=== PATIENT | male | born 1970 | race Caucasian/White ===

== ENCOUNTER 2017-12-20 07:37 | Inpatient (IN) | payer OTHER, SELFPAY ==
[2017-12-20] VITALS (22 sets, daily range): BP systolic 126–179; BP diastolic 75–126; PULSE 80–97; RESP 10–28; TEMP 36.3–37; O2SAT 92–100; BMI 36.8; BMI 37.7
--- NOTE | 2017-12-20 07:52 | EKG12_ITS ---
Test Reason : CP REPEAT Blood Pressure : / mmHG Vent. Rate : 087 BPM Atrial Rate : 087 BPM P-R Int : 158 ms QRS Dur : 086 ms QT Int : 418 ms P-R-T Axes : 048 018 102 degrees QTc Int : 502 ms Normal sinus rhythm T wave abnormality, consider anterolateral ischemia Prolonged QT Abnormal ECG Confirmed by HAILEE PANIAGUA, MART ([id number]), commissioning editor UMA TIRADO ([id number]) on 12/22/2017 3:22:57 PM Referred By: Ryan Rai Confirmed By:MART STEPHEN MD
--- NOTE | 2017-12-20 07:59 | ED.VISSUMM ---
- ER Visit Summary Date of Service: 12/20/17 Chief Complaint: [Chest pain] History of Present Illness: The patient is a 47 M [who presents the emergency department with chest pain. It has been going on for the last 24 hours. It is substernal in nature. He is very short of breath. He has been having intermittent chest pain for the last 1-2 months that usually goes away on its own but this has not. He describes it as an unbelievable heaviness with numbness in his hands bilaterally. He does have a history of high blood pressure and high cholesterol diagnosed at [facility] screening but has never seen a doctor. He does smoke. He denies any diaphoresis or nausea.] Physical Examination: [] Blood pressure 190/130 other vitals within acceptable limits except for a respiratory rate of 28 WN WD NAD PERRL EOMI MMM NECK supple and nontender, no masses RRR no murmur rub or gallop, no peripheral edema, symmetric radial pulses No respiratory distress and expiratory wheezing ABDOMEN is soft and nontender, normal bowel sounds, no distension, no rebound or guarding SKIN is warm and dry no rashes Alert and Oriented x3, CN II-XII in tact, no motor or sensory deficits, gait normal No lymphadenopathy Test Results: [] Emergency Department Course and Treatment: [Initial EKG concerning for less than half a millimeter of ST elevation in the inferior leads and biphasic T waves in the anterior leads. Given the patient's history I did speak immediately with the apprentice plumber. He states that the patient should be placed on a nitro drip and admitted to the hospital. I did discuss early catheterization and he felt like the patient did not need to be taken to the Broommaking Supervisor from the emergency department. Repeat EKG shows continued borderline ST elevation in the inferior leads and biphasic T waves anteriorly. It is not significantly changed from the first. Patient's troponin came back at 7. I spoke back with Dr. Wali trujillo. The patient's pain was a 3-1/2 at that point. He did advise to increase the nitro drip which was done. Dr. Rai will be in to evaluate the patient. He will be admitted to the ICU. Treatment Plan: [] Disposition: [Admit] Impression: [Acute TX] This note was generated with Glass dictation software. It may contain incorrect words, spelling, and punctuation that were not noted in review of the chart prior to signing ED Disposition - Plan for ED Patient: Chief Complaint: Chest Pain Referrals: NOT,DEFINED [NON-STAFF] -
--- NOTE | 2017-12-20 08:00 | RAD_ITS ---
STUDY: X-RAY CHEST REASON FOR EXAM: Male, 47 years old. Chest pain and hypertension. TECHNIQUE: Two AP portable views of the chest. COMPARISON: Prior comparison studies are not available for review at this time. FINDINGS: The lungs are clear and expanded. There is no demonstrated pleural abnormality. There is borderline cardiomegaly. Normal mediastinum and renuka. Normal visualized pulmonary arteries. There is atherosclerotic tortuosity of the aortic arch and descending thoracic aorta. There is demineralization of the osseous structures. Normal visualized ribs, clavicles, and shoulders. There is no demonstrated abnormality of the visualized soft tissue structures of the upper abdomen. RAD/Chest 1 View (Portable) IMPRESSION: Borderline cardiomegaly. Electronically Signed: Jennifer Camacho MD at 8:23 EDT , Service support ,
--- NOTE | 2017-12-20 08:03 | ED.DCSUM_ITS ---
- ER Visit Summary Date of Service: 12/20/17 Chief Complaint: [Chest pain] History of Present Illness: The patient is a 47 M [who presents the emergency department with chest pain. It has been going on for the last 24 hours. It is substernal in nature. He is very short of breath. He has been having intermittent chest pain for the last 1-2 months that usually goes away on its own but this has not. He describes it as an unbelievable heaviness with numbness in his hands bilaterally. He does have a history of high blood pressure and high cholesterol diagnosed at health fair screening but has never seen a doctor. He does smoke. He denies any diaphoresis or nausea.] Physical Examination: [] Blood pressure 190/130 other vitals within acceptable limits except for a respiratory rate of 28 WN WD NAD PERRL EOMI MMM NECK supple and nontender, no masses RRR no murmur rub or gallop, no peripheral edema, symmetric radial pulses No respiratory distress and expiratory wheezing ABDOMEN is soft and nontender, normal bowel sounds, no distension, no rebound or guarding SKIN is warm and dry no rashes Alert and Oriented x3, CN II-XII in tact, no motor or sensory deficits, gait normal No lymphadenopathy Test Results: [] Emergency Department Course and Treatment: [Initial EKG concerning for less than half a millimeter of ST elevation in the inferior leads and biphasic T waves in the anterior leads. Given the patient's history I did speak immediately with the hr systems analyst. He states that the patient should be placed on a nitro drip and admitted to the hospital. I did discuss early catheterization and he felt like the patient did not need to be taken to the Rotary Surface Grinder from the emergency department. Repeat EKG shows continued borderline ST elevation in the inferior leads and biphasic T waves anteriorly. It is not significantly changed from the first. Patient's troponin came back at 7. I spoke back with Dr. Wali trujillo. The patient's pain was a 3-1/2 at that point. He did advise to increase the nitro drip which was done. Dr. Rai will be in to evaluate the patient. He will be admitted to the ICU. Treatment Plan: [] Disposition: [Admit] Impression: [Acute NE] This note was generated with iLinc dictation software. It may contain incorrect words, spelling, and punctuation that were not noted in review of the chart prior to signing ED Disposition - Plan for ED Patient: Chief Complaint: Chest Pain Referrals: NOT,DEFINED [NON-STAFF] -
[2017-12-20] MEDS: Nitroglycerin Infusion 250 ML 3 MG IV (08:16)
[2017-12-20] MEDS: Morphine 4 MG/ML Syringe IV ×2 (08:16→09:26)
[2017-12-20] MEDS: Ondansetron 4 MG/2 ML Vial IV (08:18)
[2017-12-20] MEDS: Aspirin 81 MG TAB.CHEW 324 MG PO (08:18)
[2017-12-20 08:25] LABS: Absolute Lymphocyte Count 2.91 X10^3/ul (0.83-4.51); Absolute Neutrophil Count 6.6 X10^3/uL (2.0-7.7); Basophil# 0.03 X10^3/uL; Basophil% 0.3 % (0-1); Eosinophil# 0.16 X10^3/uL; Eosinophils% 1.5 % (0-5); Lymphocyte # 2.91 X10^3/ul (4.0); Lymphocyte % 27.9 % (19-41); Mean Corpuscular Hgb 30.1 pg (27.0-32.0); Mean Corpuscular Volume 83.6 fL (80-94); Mean Platelet Vol. 9.9 fl (6.2-12.0); Monocyte# 0.74 X10^3/uL; Monocyte% 7.1 % (0-10); Neutrophil # 6.56 X10^3/uL (2.7-7.7); Platelet Count 227 K/mm3 (150-450); RBC Distribution Width CV 13.2 % (11.6-14.6); RBC Distribution Width SD 39.7 fl (35.1-43.9); Red Blood Count 5.98 M/mm3 (4.6-6.2); White Blood Count 10.4 K/mm3 (4.4-11.0)
[2017-12-20 08:27] LABS: POSITIVE COUNT NO; POSITIVE DIFFERENTIAL NO; POSITIVE MORPHOLOGY NO
[2017-12-20 08:31] LABS: Anion Gap 8 (5-15); BUN 14 mg/dL (7-18); Calcium,Total 8.9 mg/dL (8.5-10.1); Chloride 104 mmol/L (98-107); Creatinine, Serum 1.27 mg/dL (0.70-1.30); EST Glomerular Filtration Rate 64 mL/min (>60); Est Glom Filt Rate - Afr Amer 78 mL/min (>60); Estimated Creatinine Clearance 73.45 ml/min; Glucose 144 mg/dL (74-106); Potassium 4.5 mmol/L (3.5-5.1); Sodium Level 139 mmol/L (136-145)
--- NOTE | 2017-12-20 08:31 | ED.RN ---
TROPONIN 7.61 DR GOLDSTEIN MADE AWARE
[2017-12-20 08:35] LABS: International Normalized Ratio 0.9; Prothrombin Time (Protime)PT. 12.2 SECONDS (11.7-14.9)
[2017-12-20 08:36] LABS: Partial Thromboplast Time 29.4 Seconds (24.1-36.2)
[2017-12-20] MEDS: HEPARIN/D5w 25,000 UNITS 25,000 UNITS/250 ML IV.SOLN. 0.8 UNITS IV (08:36)
--- NOTE | 2017-12-20 08:46 | EKG12_ITS ---
Test Reason : CP Blood Pressure : / mmHG Vent. Rate : 088 BPM Atrial Rate : 088 BPM P-R Int : 160 ms QRS Dur : 090 ms QT Int : 376 ms P-R-T Axes : 057 032 098 degrees QTc Int : 454 ms Normal sinus rhythm with sinus arrhythmia ST & T wave abnormality, consider anterior ischemia Abnormal ECG Confirmed by HAILEE PANIAGUA, MART ([id number]), website/blog editor UMA TIRADO ([id number]) on 12/22/2017 3:23:16 PM Referred By: Ryan Rai Confirmed By:MART STEPHEN MD
--- NOTE | 2017-12-20 08:47 | EKG12_ITS ---
Test Reason : REPEAT Blood Pressure : / mmHG Vent. Rate : 081 BPM Atrial Rate : 081 BPM P-R Int : 168 ms QRS Dur : 088 ms QT Int : 416 ms P-R-T Axes : 057 031 090 degrees QTc Int : 483 ms Normal sinus rhythm T wave abnormality, consider anterolateral ischemia Prolonged QT Abnormal ECG Confirmed by HAILEE PANIAGUA, MART ([id number]), photograph editor UMA TIRADO ([id number]) on 12/22/2017 3:23:34 PM Referred By: Ryan Rai Confirmed By:MART STEPHEN MD
[2017-12-20] MEDS: Heparin Injection (Vial) 5,000 UNIT/ML VIAL 4000 UNIT IV (08:52)
[2017-12-20] MEDS: Ipratropium/Albuterol Sulfate 3 ML AMPUL.NEB INHALATION (09:13)
--- NOTE | 2017-12-20 09:16 | PCM.CONS.C ---
Reason for Consult Date of Consultation: 12/20/17 History of Present Illness: The patient is a 47 year old M with no significant past medical history. He however has been told that [facility] that he may be running high blood pressure and elevated cholesterol. According to the patient, for the past 3 months, he has been having exertional chest discomfort. This is relieved with rest. However the discomfort started at rest yesterday and has since been constant. He describes it as a pressure across his anterior chest. No radiation. Positive associated shortness of breath. The discomfort is exacerbated with any activity. Denies any nausea or vomiting. No diaphoresis. He presented to the emergency room this morning. He was noted to be markedly hypertensive. EKG showed ischemic changes across anterior leads. He was started on heparin and nitroglycerin infusion. His discomfort has decreased but not totally relieved. Troponin was checked and was noted to be 7.6 [] Past Medical History Allergies/Adverse Reactions: Allergies No Known Allergies Allergy (Verified 12/20/17 07:57) Home Medications: Ambulatory Orders Medication Instructions Recorded Loratadine [Claritin] 10 mg PO DAILY 12/20/17 Multivitamin [Daily Multiple 1 each PO DAILY 12/20/17 Vitamin] Omeprazole [Prilosec] 20 mg PO DAILY 12/20/17 Smoking Status: Current every day smoker Review of Systems - Review of Systems General: Denies: Fever, Chills HEENT: Denies: Sore Throat Cardiovascular: Reports: Chest Discomfort at Rest, Chest Discomfort with Exertion, Shortness of Breath with Exertion. Denies: Orthopnea, PND Respiratory: Denies: Hemoptysis, Wheezing Gastrointestinal: Denies: Abdominal Discomfort, Jaundice, Hematemesis, Melena Neurological: Denies: History of TIA, History of CVA Hematologic/ Lymphatic: Denies: Anemia, Easy Brusing, Easy Bleeding Subjectve: Appears slightly anxious. Appears mildly dyspneic Objective: Vital Signs Temp Pulse Resp BP Pulse Ox 98 F 80 16 150/98 H 98 12/20/17 09:11 12/20/17 09:11 12/20/17 09:11 12/20/17 09:13 12/20/17 09:11 Oxygen Flow Rate (L/min) 2 Oxygen Delivery Method Nasal Cannula Weight: 116.5 kg Body Mass Index (BMI) 36.8 General: Awake, Alert, Oriented x 3 HEENT: Atraumatic, Normocephalic Oral: Moist Mucosa Neck: - - Unable to evaluate JVD on account of body habitus Lungs: Expiratory Wheezes-Hardik Cardiovascular: Regular Rhythm, Normal S1, Normal S2 Vascular: No Carotid Bruits Abdomen: Bowel Sounds Present, Soft, Non Tender Extremities: No edema Neurological: No Focal Motor or Sensory Deficit Psych/Mental Status: Appropriate 12/20/17 07:50: WBC 10.4, RBC 5.98, Hgb 18.0 H*, Hct 50.0, MCV 83.6, MCH 30.1, MCHC 36.0, RDW 13.2, RDW Differential 39.7, Plt Count 227, MPV 9.9, Immature Gran % (Auto) 0.200, Neut % (Auto) 63.0, Lymph % (Auto) 27.9, [place] % (Auto) 7.1, Eos % (Auto) 1.5, Baso % (Auto) 0.3, Absolute Neuts (auto) 6.6, Total Counted Not Reportable 12/20/17 07:50: Sodium 139, Potassium 4.5, Chloride 104, Carbon Dioxide 27.0, Anion Gap 8, BUN 14, Creatinine 1.27, Est GFR (MDRD) Af Amer 78, Est GFR (MDRD) Non-Af 64, BUN/Creatinine Ratio 11.0, Glucose 144 H, Calcium 8.9, Troponin I 7.610 H* 12/20/17 07:50: PT 12.2, INR 0.9, APTT 29.4 Rhythm: Normal sinus rhythm EKG: Normal sinus rhythm. Biphasic T waves across anterior precordial leads suggestive of inferior ischemia Assessment/Plan 1. Non-ST elevation myocardial infarction with ongoing angina. He recommended urgent coronary angiography and possible revascularization. Risks benefits were explained to the patient. He understands these and wishes to proceed. Further recommendations will follow results of coronary angiography 2. Hypertension. Started on nitroglycerin infusion. Further recommendations following cardiac catheterization 3. Bilateral wheezing. History of nicotine dependence. Possibly COPD. Administer bronchodilator therapy. Stop smoking. Manage as per internal medicine 4. Nicotine dependence. Counseled to quit 5. Obesity. Lose weight 6. Lipid management as per internal medicine
--- NOTE | 2017-12-20 10:30 | EKG12_ITS ---
Test Reason : PCI Blood Pressure : / mmHG Vent. Rate : 089 BPM Atrial Rate : 089 BPM P-R Int : 174 ms QRS Dur : 086 ms QT Int : 430 ms P-R-T Axes : 062 023 118 degrees QTc Int : 523 ms Normal sinus rhythm with sinus arrhythmia T wave abnormality, consider anterolateral ischemia Inferior NC, age undetermined, cannot be excluded Prolonged QT Abnormal ECG Confirmed by JOEY PANIAGUA, NAVI ([id number]), story editor UMA TIRADO ([id number]) on 12/25/2017 2:17:45 PM Referred By: Ryan Rai Confirmed By:NAVI COOK MD
--- NOTE | 2017-12-20 10:40 | NURSING ---
In ICU 202, per bed from woven label designer, woven label designer RN in attendance
--- NOTE | 2017-12-20 10:44 | CL.D_ITS ---
Patient Name: SOCORRO ORTIZ Study Date: 12/20/2017 Performing: Ryan Rai MD Ht: 70 inches 178 cm : 1970 Wt: 258.3 lbs 117 kg Age: 47 Gender: male BSA: 2.33 PROCEDURE(S) PERFORMED [id number] CLINICAL PROFILE AND INDICATIONS Heart Failure: None Angina Classification Anginal Classification w/in 2 Weeks: CCS IV CAD Presentations: Non-STEMI. Symptom onset Date/Time: 12/19/2017 Time Not Available CONCLUSIONS Severe multi-vessel CAD with 95% Prox LAD, 100% apical LAD, 95% ostial D1; 75% Prox LCX with 100% Pro x OM2 GROUP CAPTAIN; 100% Prox RCA GROUP CAPTAIN LVEF 30% RECOMMENDATIONS CABG LAD, D1, OM1/OM2, RPDA, RPLV DESCRIPTION OF PROCEDURE The patient arrived to the procedure lab. The risks and benefits of the procedure as well as a full d escription of our services here and current unavailability of surgical backup were fully explained to the patient and/or their significant other prior to the catheterization. The Timeout was completed, verifying the correct patient and procedure. The patient's procedural site was prepped and draped in the usual fashion. Local anesthetic was given subcutaneously to right radial region with Lidocaine 2% . Using a modified Seldinger technique, arterial access was obtained via the right radial artery, a 6 Fr sheath was inserted. Left Coronary Artery selective angiography was performed in multiple views u sing a 5 Fr. 4.0 [place] catheter. Right Coronary Artery selective angiography was then performed in mu ltiple views using a 5 Fr. 4.0 [place] catheter. Left Ventriculography was performed in GANNON projection using a 5 Fr. Pigtail catheter. LV to AO pullback pressures were then recorded.The arterial sheath wa s pulled and a TR Band was applied for hemostasis 14 CC AIR CORONARY ANGIOGRAPHY DOMINANCE: Right Dominant LEFT HEART ASSESSMENT Left Ventricular Ejection Fraction: by LV Gram 30 %. Apical dyskinesis. Severe posterior hypokinesis. Anterior hypokinesis LVEDP: 14 mmHg LEFT MAIN: No angiographically significant disease LEFT ANTERIOR DECENDING ARTERY: 95% Prox, 100% apical LAD. Filling retrogradely via collaterals. 95% ostial D1 CIRCUMFLEX ARTERY: 70% Prox LCX. 100% OM2 filling retrogradely via collaterals from OM1 RIGHT CORONARY ARTERY: 100% Proximal. RPDA and RPLV filling rterogradely via collaterals from the lef t system COMPLICATIONS No Complications PROCEDURE MEDICATIONS Fentanyl 25 mcg IV Versed 1 mg IV Oxygen: 2 L/min via nasal cannula Verapamil 2.5mg, Ntg 100mcgs, given IA 12/20/2017 09:51:51 SUMMARY OF HEMODYNAMIC DATA Time AIR REST ECG 09:42:38 AO 130/97 (110) SA 09:53:24 LV 128/7, 13 09:59:58 LV 122/7, 14 10:00:04 LVp 127/8, 18 10:01:06 AOp 130/98 (110) 10:01:11 Signed By Ryan Rai MD On 12/20/2017 10:44:29 Ryan Rai MD
[2017-12-20 13:23] LABS: M R Staph aureus DNA By PCR Negative (Negative); Probe Check PASS; Specimen Processing Control PASS
--- NOTE | 2017-12-20 13:25 | NURSING ---
to Sandra Avila per [facility] mobile ICU. report called to TIMBO Cardoso RN
[2017-12-20 15:15] LABS: ACT Activated Clotting Time 164 sec (74-137)
--- NOTE | 2017-12-21 17:35 | PCM.HP.STD ---
Problem List (1) Chest pain Status: Acute Qualifiers: Chest pain type: precordial pain Qualified Code(s): R07.2 - Precordial pain History of Present Illness Date of Admission: 12/20/17 Chief Complaint: Chest pain The date of this dictation should read 12/20/17: The patient is a 47 year old M wwasuncion seen in the emergency room at [facility] with a chief complaint of precordial chest pain which had started yesterday, he described the pain as if an elephant is sitting on my chest. Patient also complained of some shortness of breath along with the chest discomfort, he also had feelings of tingling in his arms. Patient states the chest discomfort came on at rest and has been continuous since yesterday. Patient states that activity seems to make it worse.. Patient also stated that he has had intermittent chest pains for the last 3 months. Patient does not routinely see a physician and is on no medication except [id number] Prilosec for GERD. Workup in the emergency room included an EKG which showed ST-T wave changes in the anterior leads indicating possible ischemic changes, patient's labs were remarkable for troponin of 7.6 and a hemoglobin of 18. Patient's chest x-ray showed no evidence of acute pathology. Cardiology was contacted and the patient was placed on nitroglycerin drip and given IV heparin. Hospitalist service was called for admission for acute non-STEMI/unstable angina. Patient will be taken directly to the Cyber Incident Analyst from the emergency room and then he will be admitted to ICU if needed or transferred out to an acute care hospital if needed Past Medical History Allergies No Known Allergies Allergy (Verified 12/20/17 07:57) Home Medications: Ambulatory Orders Medication Instructions Recorded Loratadine [Claritin] 10 mg PO DAILY 12/20/17 Multivitamin [Daily Multiple 1 each PO DAILY 12/20/17 Vitamin] Omeprazole [Prilosec] 20 mg PO DAILY 12/20/17 Surgical History: no surgical history Psychiatric History: No pertinent psych hx Lives: Spouse/ Significant Other Smoking Status: Current every day smoker Tobacco Use: Cigarettes Alcohol: None Drugs: None - *Family History Maternal History Items: Diabetes Paternal History Items: No pertinent history Review of Systems Constitutional: Denies: Anorexia, Chills, Fever, Night Sweats, Malaise, Weakness, Weight Change, Fatigue Eyes: Denies: Blurred vision, Cataracts, Conjunctivae Inflammation, Double vision, Drainage HEENT: Denies: Difficulty Swallowing, Dysphasia, Ear Pain, Eye Pain, Nasal bleeding, Nasal Congestion, Post Nasal Drip Cardiovascular: Reports: Chest Pain, Chest Pressure, Heaviness. Denies: Claudication, Chest Tightness, Edema, Light Headedness, Orthopnea, Palpitations, Paroxysmal Noc. Dyspnea, Syncope Respiratory: Reports: Shortness of Breath, Shortness of breath at rest, Shortness of breath upon exertion. Denies: Cough, Hemoptysis, Pleuritic Pain, Sputum production, Wheezing Gastrointestinal: Denies: Abdominal Pain, Constipation, Diarrhea, Hematemesis, Hematochezia, Nausea, Melena, Vomiting Genitourinary: Denies: Dysuria, Frequency, Hematuria, Hesitancy, Urgency Musculoskeletal: Denies: Back Pain, Foot Pain, Hand Pain, Joint Pain, Joint stiffness, Joint swelling Skin: Denies: Dryness, Pruritis, Rash Neurological: Denies: Blurred vision, Double vision, Change in Speech, Slurred speech, Difficulty swallowing, Focal weakness, Headaches, Incoordination, Numbness, Tingling Psychiatric: Denies: Anxiety, Depression, Homicidal Ideations, Suicidal Ideations Endocrine: Denies: Change in Body Habitus, Heat/ Cold Intolerance, Polydipsia, Polyuria Hematologic/ Lymphatic: Denies: Adenopathy, Anemia, Easy Bruising, Easy Bleeding, Petechiae, Purpura VTE Information - Inpt Only VTE Present on Admission: No VTE Mechan Device Prophylaxis: SCD's VTE Pharm Prophylaxis ordered?: No - Physical Exam General: Alert, Oriented x3, Cooperative, Well developed, Well nourished, - - Patient appears uncomfortable due to chest pain HEENT: Atraumatic, PERRLA, EOMI, Normocephalic Oral: Moist Mucosa Neck: Supple, No JVD, Negative Carotid Bruits, No Nuchal Rigidity, Trachea Midline, Thyroid Normal Size and Texture Lungs: Clear to auscultation, Normal air movement, No rhonchi, No wheeze, No rales Cardiovascular: Regular rate, Regular Rhythm, Normal S1, Normal S2, No murmurs, PMI Normal, No rub noted, No Gallop Abdomen: Bowel Sounds Present, Soft, Non Tender, Non-Distended, No hernias noted Extremities: No clubbing, No cyanosis, No edema, Capillary Refill Less than 3 Seconds Skin: No rashes, No breakdown Musculoskeletal: No Tenderness to Palpation of Joints or Extremities Neurological: Cranial nerves II-XII grossly intact, Neuro grossly intact, Muscle tone normal, Sensory exam intact to light touch and pain, Coordination normal Psych/Mental Status: Normal Affect, Appropriate, Alert and oriented to time, place, person, mood and affect Vital Signs Temp Pulse Resp BP Pulse Ox 98.6 F 95 21 H 126/90 H 97 12/20/17 12:00 12/20/17 13:15 12/20/17 13:15 12/20/17 13:15 12/20/17 13:15 Oxygen Flow Rate (L/min) 2 Oxygen Delivery Method Nasal Cannula Assessment/Plan All Active Problems Chest pain (Acute) #1 [id number] patient will be taken to the cardiac catheterization lab from the ER, in the meantime, he will continue on IV nitroglycerin drip as well as IV heparin, depending on the findings in the cardiac catheterization lab, patient will either be admitted here for ongoing treatment or be transferred to an acute care hospital for further care. #2 GERD by history Code Visit Inpatient E&M: [id number] Init Hosp L3
--- NOTE | 2017-12-21 17:46 | HP.PCM_ITS ---
Problem List (1) Chest pain Status: Acute Qualifiers: Chest pain type: precordial pain Qualified Code(s): R07.2 - Precordial pain History of Present Illness Date of Admission: 12/20/17 Chief Complaint: Chest pain The date of this dictation should read 12/20/17: The patient is a 47 year old M wwasuncion seen in the emergency room at [facility] with a chief complaint of precordial chest pain which had started yesterday, he described the pain as if an elephant is sitting on my chest. Patient also complained of some shortness of breath along with the chest discomfort, he also had feelings of tingling in his arms. Patient states the chest discomfort came on at rest and has been continuous since yesterday. Patient states that activity seems to make it worse.. Patient also stated that he has had intermittent chest pains for the last 3 months. Patient does not routinely see a physician and is on no medication except [id number] Prilosec for GERD. Workup in the emergency room included an EKG which showed ST-T wave changes in the anterior leads indicating possible ischemic changes, patient's labs were remarkable for troponin of 7.6 and a hemoglobin of 18. Patient's chest x-ray showed no evidence of acute pathology. Cardiology was contacted and the patient was placed on nitroglycerin drip and given IV heparin. Hospitalist service was called for admission for acute non- STEMI/unstable angina. Patient will be taken directly to the [facility] from the emergency room and then he will be admitted to ICU if needed or transferred out to an acute care hospital if needed Past Medical History Allergies No Known Allergies Allergy (Verified 12/20/17 07:57) Home Medications: Ambulatory Orders Medication Instructions Recorded Loratadine [Claritin] 10 mg PO DAILY 12/20/17 Multivitamin [Daily Multiple 1 each PO DAILY 12/20/17 Vitamin] Omeprazole [Prilosec] 20 mg PO DAILY 12/20/17 Surgical History: no surgical history Psychiatric History: No pertinent psych hx Lives: Spouse/ Significant Other Smoking Status: Current every day smoker Tobacco Use: Cigarettes Alcohol: None Drugs: None - *Family History Maternal History Items: Diabetes Paternal History Items: No pertinent history Review of Systems Constitutional: Denies: Anorexia, Chills, Fever, Night Sweats, Malaise, Weakness , Weight Change, Fatigue Eyes: Denies: Blurred vision, Cataracts, Conjunctivae Inflammation, Double vision, Drainage HEENT: Denies: Difficulty Swallowing, Dysphasia, Ear Pain, Eye Pain, Nasal bleeding, Nasal Congestion, Post Nasal Drip Cardiovascular: Reports: Chest Pain, Chest Pressure, Heaviness. Denies: Claudication, Chest Tightness, Edema, Light Headedness, Orthopnea, Palpitations , Paroxysmal Noc. Dyspnea, Syncope Respiratory: Reports: Shortness of Breath, Shortness of breath at rest, Shortness of breath upon exertion. Denies: Cough, Hemoptysis, Pleuritic Pain, Sputum production, Wheezing Gastrointestinal: Denies: Abdominal Pain, Constipation, Diarrhea, Hematemesis, Hematochezia, Nausea, Melena, Vomiting Genitourinary: Denies: Dysuria, Frequency, Hematuria, Hesitancy, Urgency Musculoskeletal: Denies: Back Pain, Foot Pain, Hand Pain, Joint Pain, Joint stiffness, Joint swelling Skin: Denies: Dryness, Pruritis, Rash Neurological: Denies: Blurred vision, Double vision, Change in Speech, Slurred speech, Difficulty swallowing, Focal weakness, Headaches, Incoordination, Numbness, Tingling Psychiatric: Denies: Anxiety, Depression, Homicidal Ideations, Suicidal Ideations Endocrine: Denies: Change in Body Habitus, Heat/ Cold Intolerance, Polydipsia, Polyuria Hematologic/ Lymphatic: Denies: Adenopathy, Anemia, Easy Bruising, Easy Bleeding , Petechiae, Purpura VTE Information - Inpt Only VTE Present on Admission: No VTE Mechan Device Prophylaxis: SCD's VTE Pharm Prophylaxis ordered?: No - Physical Exam General: Alert, Oriented x3, Cooperative, Well developed, Well nourished, - - Patient appears uncomfortable due to chest pain HEENT: Atraumatic, PERRLA, EOMI, Normocephalic Oral: Moist Mucosa Neck: Supple, No JVD, Negative Carotid Bruits, No Nuchal Rigidity, Trachea Midline, Thyroid Normal Size and Texture Lungs: Clear to auscultation, Normal air movement, No rhonchi, No wheeze, No rales Cardiovascular: Regular rate, Regular Rhythm, Normal S1, Normal S2, No murmurs, PMI Normal, No rub noted, No Gallop Abdomen: Bowel Sounds Present, Soft, Non Tender, Non-Distended, No hernias noted Extremities: No clubbing, No cyanosis, No edema, Capillary Refill Less than 3 Seconds Skin: No rashes, No breakdown Musculoskeletal: No Tenderness to Palpation of Joints or Extremities Neurological: Cranial nerves II-XII grossly intact, Neuro grossly intact, Muscle tone normal, Sensory exam intact to light touch and pain, Coordination normal Psych/Mental Status: Normal Affect, Appropriate, Alert and oriented to time, place, person, mood and affect Vital Signs Temp Pulse Resp BP Pulse Ox 98.6 F 95 21 H 126/90 H 97 12/20/17 12:00 12/20/17 13:15 12/20/17 13:15 12/20/17 13:15 12/20/17 13:15 Oxygen Flow Rate (L/min) 2 Oxygen Delivery Method Nasal Cannula Assessment/Plan All Active Problems Chest pain (Acute) #1 [id number] patient will be taken to the cardiac catheterization lab from the ER, in the meantime, he will continue on IV nitroglycerin drip as well as IV heparin, depending on the findings in the cardiac catheterization lab, patient will either be admitted here for ongoing treatment or be transferred to an acute care hospital for further care. #2 GERD by history Code Visit Inpatient E&M: 38058 Init Hosp L3
--- NOTE | 2017-12-21 17:55 | PCM.DC.SUM ---
Discharge Date and Diagnosis Date of Admission: 12/20/17 Date of Discharge: 12/20/17 - Primary Discharge Diagnosis #1 non-STEMI #2 multivessel occlusive coronary artery disease Hospital Course and Treatment Operations: None Procedures: Cardiac catheterization Summary of Care Provided: The patient is a 47 year old M seen in the emergency room at with chief complaint of precordial chest pain which he had complained of starting the day before he was seen in the ER. Workup in the emergency room included labs which showed an elevated troponin, EKG showed ST-T wave changes in the anterior wall lead indicating possible ischemic changes. Cardiology was contacted and patient was started on IV heparin and IV nitroglycerin, patient was taken directly from the emergency room and admission orders were entered for the patient to be admitted to ICU post catheterization. Patient underwent a cardiac catheterization which showed multivessel occlusive coronary disease which was not felt to be amendable for intervention here at the hospital. It was felt that the patient will require coronary artery bypass grafting. [facility] awaiting transfer to [facility], later that day on 12/20/17, patient was seen and examined felt to be in stable condition for transfer to [facility] for further treatment of his occlusive coronary disease. Home Medications: Medications to take at Discharge Loratadine [Claritin] 10 mg PO DAILY 12/20/17 Multivitamin [Daily Multiple Vitamin] 1 each PO DAILY 12/20/17 Omeprazole [Prilosec] 20 mg PO DAILY 12/20/17 Primary Care Physician: NOT,DEFINED [NON-STAFF] - Disposition: Acute care Hospital Minutes spent on discharge:: 31 Patient Condition:: Stable Medical Necessity - Tobacco Use Smoking Status: Current every day smoker Tobacco Use: Cigarettes Meaningful Use Info Meaningful Use Diagnoses (Choose all that apply): AMI - AMI Aspirin given w/in 24hrs of arrival?: Yes ASA at discharge?: No Reason ASA not ordered:: Drug Interaction - Patient was transferred to an acute care hospital Statins at discharge?: No Reason statins not ordered:: Drug Interaction - Patient was transferred to an acute care hospital Mateusz/ARB at discharge?: No Reason Mateusz/ARB not ordered:: Not indicated - Patient was transferred to an acute care hospital Beta Jasmin at discharge?: No Reason Beta Jasmin not ordered:: Allergy - Patient was transferred to an acute care hospital Done w/ Acute [place] measure.: Yes Code Visit OBSV E&M: 62018 Observ/hosp same date L3
--- NOTE | 2017-12-21 18:03 | DS.PCM_ITS ---
Discharge Date and Diagnosis Date of Admission: 12/20/17 Date of Discharge: 12/20/17 - Primary Discharge Diagnosis #1 non-STEMI #2 multivessel occlusive coronary artery disease Hospital Course and Treatment Operations: None Procedures: Cardiac catheterization Summary of Care Provided: The patient is a 47 year old M seen in the emergency room at with chief complaint of precordial chest pain which he had complained of starting the day before he was seen in the ER. Workup in the emergency room included labs which showed an elevated troponin, EKG showed ST-T wave changes in the anterior wall lead indicating possible ischemic changes. Cardiology was contacted and patient was started on IV heparin and IV nitroglycerin, patient was taken directly from the emergency room and admission orders were entered for the patient to be admitted to ICU post catheterization. Patient underwent a cardiac catheterization which showed multivessel occlusive coronary disease which was not felt to be amendable for intervention here at the hospital. It was felt that the patient will require coronary artery bypass grafting. Patient was transferred from the [facility] to the ICU awaiting transfer to [facility], later that day on 12/20/17, patient was seen and examined felt to be in stable condition for transfer to [facility] for further treatment of his occlusive coronary disease. Home Medications: Medications to take at Discharge Loratadine [Claritin] 10 mg PO DAILY 12/20/17 Multivitamin [Daily Multiple Vitamin] 1 each PO DAILY 12/20/17 Omeprazole [Prilosec] 20 mg PO DAILY 12/20/17 Primary Care Physician: NOT,DEFINED [NON-STAFF] - Disposition: Acute care Hospital Minutes spent on discharge:: 31 Patient Condition:: Stable Medical Necessity - Tobacco Use Smoking Status: Current every day smoker Tobacco Use: Cigarettes Meaningful Use Info Meaningful Use Diagnoses (Choose all that apply): AMI - AMI Aspirin given w/in 24hrs of arrival?: Yes ASA at discharge?: No Reason ASA not ordered:: Drug Interaction - Patient was transferred to an acute care hospital Statins at discharge?: No Reason statins not ordered:: Drug Interaction - Patient was transferred to an acute care hospital Mateusz/ARB at discharge?: No Reason Mateusz/ARB not ordered:: Not indicated - Patient was transferred to an acute care hospital Beta Jasmin at discharge?: No Reason Beta Jasmin not ordered:: Allergy - Patient was transferred to an acute care hospital Done w/ Acute [place] measure.: Yes Code Visit OBSV E&M: 79331 Observ/hosp same date L3
== END 2017-12-20 13:25 | disposition short-term general hospital (02) | DRG 282 ==
LOC: ED 08:28 → CLSP 09:42 → ICU 10:03 → CLSP 12:05
PROVIDERS: Admitting Provider Internal Medicine; Emergency Provider Emergency Medicine; Visit Provider Internal Medicine Cardiovascular Disease
DX: I21.4 Non-ST elevation (NSTEMI) myocardial infarction (principal); I25.119 Atherosclerotic heart disease of native coronary artery with unspecified angina pectoris; E66.9 Obesity, unspecified; Z68.36 Body mass index [BMI] 36.0-36.9, adult; F17.210 Nicotine dependence, cigarettes, uncomplicated
CPT/HCPCS: 71045; 80048; 84484; 85025; 85347; 85610; 85730; 87641; 93005; 93458; 94640; 99152; 99284; J7030; J7040; Q9967; A4216; C1769; C1894; J2405

== ENCOUNTER 2017-12-28 06:00 | Emergency (ER) | payer OTHER, SELFPAY ==
[2017-12-28 06:01] VITALS: BP 147/106; PULSE 81; RESP 24; TEMP 36.7; O2SAT 96; BMI 39.5
--- NOTE | 2017-12-28 06:06 | EKG12_ITS ---
Test Reason : CHEST TIGHTNESS Blood Pressure : / mmHG Vent. Rate : 078 BPM Atrial Rate : 078 BPM P-R Int : 162 ms QRS Dur : 100 ms QT Int : 452 ms P-R-T Axes : 028 011 076 degrees QTc Int : 515 ms Normal sinus rhythm Inferior infarct , age undetermined Prolonged QT Abnormal ECG Confirmed by HAILEE PANIAGUA, MART ([id number]), editor publications UMA TIRADO ([id number]) on 12/30/2017 1:40:01 PM Referred By: PONCE Confirmed By:MART STEPHEN MD
--- NOTE | 2017-12-28 06:10 | RAD_ITS ---
STUDY: X-RAY CHEST REASON FOR EXAM: Male, 47 years old. Chest tightness. CABG on 12/22/2017. TECHNIQUE: Single AP portable view of the chest. COMPARISON: 12/20/2017 FINDINGS: EKG leads overlies the chest. The lungs are underexpanded. There is an approximately 8.5 x 3.5 cm pleural-based circumscribed dumbbell-shaped lobular density present laterally in the left upper lung with associated streaky parenchymal opacities, likely represents a loculated pleural collection. There is an elevated diaphragm right side more than the left with diminished lung volume. Sternal cerclage wires and vascular clips are present from a prior sternotomy and coronary artery bypass graft procedure (CABG). There is a moderate cardiomegaly. Normal mediastinum and renuka. There is atherosclerotic tortuosity of the aortic arch and descending thoracic aorta. There is demineralization of the osseous structures. Stable visualized ribs, clavicles, and shoulders. There is no demonstrated abnormality of the visualized soft tissue structures of the upper abdomen. RAD/Chest 1 View (Portable) IMPRESSION: 1. Well marginated dumbbell-shaped laterally pleural-based lobular density in the left upper lung demonstrated, suggestive of loculated pleural collection. Correlation with CT exam would be useful. 2. Post CABG changes. Moderate cardiomegaly. 3. Interval increased elevation of the right hemidiaphragm. Electronically Signed: Gerri Swanson MD at 7:03 EDT Tel , Service support ,
[2017-12-28] MEDS: Ondansetron 4 MG/2 ML Vial IV (06:29)
[2017-12-28] MEDS: Aspirin 81 MG TAB.CHEW 324 MG PO (06:29)
[2017-12-28 06:34] LABS: Absolute Lymphocyte Count 1.89 X10^3/ul (0.83-4.51); Absolute Neutrophil Count 5.2 X10^3/uL (2.0-7.7); Basophil# 0.03 X10^3/uL; Basophil% 0.4 % (0-1); Eosinophil# 0.19 X10^3/uL; Eosinophils% 2.3 % (0-5); Hematocrit 34.5 % (40-54); Hemoglobin 11.8 g/dl (13.0-16.5); Lymphocyte # 1.89 X10^3/ul (4.0); Lymphocyte % 22.6 % (19-41); Mean Corp Hgb Conc 34.2 g/gl (32-36); Mean Corpuscular Hgb 29.4 pg (27.0-32.0); Mean Corpuscular Volume 85.8 fL (80-94); Monocyte# 1.05 X10^3/uL; Monocyte% 12.6 % (0-10); Neutrophil # 5.15 X10^3/uL (2.7-7.7); Neutrophil % 61.5 % (47-70); Platelet Count 273 K/mm3 (150-450); RBC Distribution Width CV 12.8 % (11.6-14.6); RBC Distribution Width SD 39.3 fl (35.1-43.9); Red Blood Count 4.02 M/mm3 (4.6-6.2); White Blood Count 8.4 K/mm3 (4.4-11.0)
[2017-12-28 06:37] LABS: POSITIVE COUNT NO; POSITIVE DIFFERENTIAL NO; POSITIVE MORPHOLOGY NO
[2017-12-28 06:45] LABS: Anion Gap 8 (5-15); BUN 16 mg/dL (7-18); BUN/Creat Ratio 15.4 RATIO (10-20); Calcium,Total 8.6 mg/dL (8.5-10.1); Chloride 102 mmol/L (98-107); Creatinine, Serum 1.04 mg/dL (0.70-1.30); EST Glomerular Filtration Rate 81 mL/min (>60); Est Glom Filt Rate - Afr Amer 98 mL/min (>60); Estimated Creatinine Clearance 86.86 ml/min; Glucose 109 mg/dL (74-106); Potassium 3.9 mmol/L (3.5-5.1); Sodium Level 139 mmol/L (136-145)
--- NOTE | 2017-12-28 07:36 | ED.VISSUMM ---
- ER Visit Summary Date of Service: 12/28/17 Chief Complaint: Chest pain History of Present Illness: The patient is a [address] Godoy and Dr. Raines. Patient had a four-vessel CABG 6 days ago at [facility] by Dr. Khanna. He was discharged yesterday. Ports at approximately 4:00 this morning while at rest he had the onset of substernal tightness. Is 6 out of 10 at worst and 510 currently. Is worsened by laying flat. It is relieved by walking, sitting up, and breathing. Reports he has had nausea ever since the procedure. Is not vomited. He reports that he continues to have mild dyspnea. He denies any other complaints. Physical Examination: Vitals: Stable. Afebrile. General: Well-nourished and well-developed. Head: Normocephalic atraumatic. Neck: Supple, no lymphadenopathy. No JVD. Nontender. Cardiovascular: Regular rate and rhythm. No murmurs. No rub. Respiratory: No respiratory distress. Clear to auscultation bilaterally. Mild appropriate tenderness palpation over his sternotomy incision. The incision itself is clean, dry, intact. There is no surrounding erythema. It is closed with Dermabond. Abdominal: Soft, nontender, nondistended, normal bowel sounds. No guarding, rebound, or peritoneal signs. Back: Nontender. Extremities: Nontender, 1+ pitting edema of his lower extremity bilaterally. Skin: Normal color, no rash. Neurologic: Alert and oriented ?3. Cranial nerves II through XII are intact. Normal strength and sensation. Psych: Normal affect. Test Results: EKG is sinus at 70 with no ischemic changes. The lateral T-wave inversions from last week it resolved. Troponin is 0.566. His troponin on December 20 was 7.61. Chem-7 more for glucose of 109. CBC is marked for an H&H 11 point and 34.5. Monocytes 13. Clinical Impression(s) from Imaging Studies Chest X-Ray 12/28/17 06:10 IMPRESSION: 1. Well marginated dumbbell-shaped laterally pleural-based lobular density in the left upper lung demonstrated, suggestive of loculated pleural collection. Correlation with CT exam would be useful. 2. Post CABG changes. Moderate cardiomegaly. 3. Interval increased elevation of the right hemidiaphragm. Electronically Signed: Gerri Swanson MD at 7:03 EDT Tel , Service support , Emergency Department Course and Treatment: Patient's resting comfortably with throughout his stay in the emergency department without complaint. Treatment Plan: Patient was discussed with Dr. Khanna. He reports that the finding on the x-ray was present yesterday as well. He suspects it is a small hematoma from the chest tube. Clinically it sounds as though the patient has pain from his recent surgery or potentially pericarditis with it worsening with laying down. He will be discharged with instructions to follow-up with Dr. Khanna as previously directed. Return to the emergency department for any worsening symptoms. Disposition: To home in improved and stable condition. Impression: 1. Postop day #6 status post CABG (four-vessel). This note was generated with [employer] dictation software. It may contain incorrect words, spelling, and punctuation that were not noted in review of the chart prior to signing ED Disposition - Plan for ED Patient: Chief Complaint: Chest Pain Instructions: ED Post Op Pain Additional Instructions: Follow up with Dr. Khanna as previously scheduled.
[2017-12-28 07:49] VITALS: BP 130/70; PULSE 78; RESP 22; O2SAT 96
== END 2017-12-28 07:50 | disposition home or self-care (01) ==
PROVIDERS: Emergency Provider Emergency Medicine
DX: R07.9 Chest pain, unspecified (principal); R06.00 Dyspnea, unspecified; Z95.1 Presence of aortocoronary bypass graft; I25.10 Atherosclerotic heart disease of native coronary artery without angina pectoris; I10 Essential (primary) hypertension; E78.00 Pure hypercholesterolemia, unspecified; Z87.891 Personal history of nicotine dependence; Z79.51 Long term (current) use of inhaled steroids; Z79.82 Long term (current) use of aspirin; Z79.02 Long term (current) use of antithrombotics/antiplatelets; Z79.84 Long term (current) use of oral hypoglycemic drugs; Z79.891 Long term (current) use of opiate analgesic; Z79.899 Other long term (current) drug therapy
CPT/HCPCS: 71045; 80048; 84484; 85025; 93005; 96374; 99285; A4216

== ENCOUNTER → 2018-01-29 11:56 | Outpatient (CLI) | payer OTHER, SELFPAY ==
--- NOTE | 2018-01-29 12:12 | PCM.CR.ITP ---
General Information - General Information Admitting Diagnosis: CABG - Education/Goals Barriers to Learning: None, Vision Impairment - wears glasses Individual Counseling: Initial Assessment: Nicotine/Smoking, Abnormal Cholesterol Levels, High Blood Pressure, Overweight/Obesity, Metabolic Syndrome (as evidenced by 3 of 5 A-E below), A. Fasting Blood Sugar >100, B. Waist Circumference >35/Females >40/Males, Hypertension, Stress, Family History of Heart Disease (under 65 years) Cardiac Rehabilitation Goals: 1. Maintain the individual as the primary focus of care. 2. To improve the patient's quality of life. 3. Identification of cardiac risk factors and provide cardiac risk factor management. 4. Enhance the psychosocial status of the patient. 5. Reconditioning enough to allow the patient to resume customary activities. 6. Control symptoms of cardiac disease Scale for measuring improvement of personal goals: Enter appropriate number in Comments. 2 = Unchanged. 3 = Slightly Better. 4 = Moderate Improvement. 5 = Met my Goal Personal Goals: Initial Assessment: Quit smoking (participate in smoking cessation, Improve energy level, Improve muscle strength and endurance, Control risk factors (learn risk factor modification) Exercise - Initial Assessment - Visit Date of Eval: 01/29/18 - Stages of Change Stages of Change:: Action - Exercise Prescription Mode:: Treadmill, Biodyne, Rower, Airdyne, NuStep - Hypertension Do any of the following apply?: Yes, Medication - Intervention Home Exercise/Activity Goal:: Sitting Time <3 hrs/day - Education Goals:: Warm-up, RPE DEMETRIO Scale, S/S, Safe Exercise, Self-Monitoring - Exercise Program Goals Exercise Program Goals: Aerobic Activity >30 min Nutrition - Initial Assessment - Program Goals Nutrition Program Goals: LDL <70. Total Cholesterol <200. HDL >45. Triglycerides <150. HgbA1C <7%. BMI <25 - Visit Date of Assessment:: 01/29/18 - Stages of Change Stages of Change:: Action - Diabetes Diabetes:: No Non-Insulin Dependent?: Yes Do you monitor your blood sugar at home?: Yes - on metformin - Weight Management Height: 1.77 m Weight:: 114.305 kg Weight Goal (kg):: 74.389 kg Body Fat %:: 36.6 Goal % Body Fat:: 24 - Intervention Referral to dietitian:: Yes Referral to Diabetic Clinic:: Yes Will attend diet classes:: Yes - Education Gave educational materials for:: Signs & symptoms of hypoglycemia, Signs & symptoms of hyperglycemia, Relate diabetes to coronary artery disease, Healthy eating Tobacco - Initial Assessment - Program Goals Tobacco Program Goals: Complete smoking cessation. Attend education classes. Improve Knowledge Test score - Stage of Change Stages of Change:: Action - Learning Barriers Learning Barriers: Vision - wears reading glasses, Ready to Learn Total Score:: 16 - Family Support Do you have family support?: Yes - Tobacco Use Tobacco Use: Cigarettes How long ago did you quit using tobacco products?: Less than 6 months ago How many cigarettes do you smoke per day?: 30 - quit 12/20/17 Years Smokin Do you use smokeless tobacco?: No - Intervention Smoking Cessation Referral:: Yes Individual Education/Counseling:: Yes Education Schedule Given:: Yes - Education Gave educational material for:: Tobacco triggers, Coronary artery disease, Risk factors, Sexuality, Medical compliance, Cardiac A&P, Angina signs & symptoms Psychosocial - Initial Assess - Target Goals Target Goals: Assess presence or absence of depression. Using a valid screening tool, maximizes coping skills. Positive support system - Stages of Change Stages of Change:: Action - Psychosocial Test Tool Used:: HANDS Depression Questionnaire Self-reported stress:: work Total Mood Screening Score:: 5 Self-Efficacy Score:: 7 - Intervention PS - Interventions: Yes Attend Stress Management Classes, Yes Uses Stress Management Skills, No Referral to Mental Health, No Referral to [facility] Case Management, No Referral to Physician - Education Gave educational materials for:: Signs & symptoms of depression, Stress management, Relaxation techniques - Patient/Program Goal Preventative Medication(s):: Aspirin, LEONID inhibitor, Clopidogrel, Beta cleve, Statin/lipid - Assistive Devices Assistive Devices:: None Fall Risk Assessed:: Yes Patient Health Questionnaire Initial Assessment 1. Little interest or pleasure in doing things: Not at all 2. Feeling down, depressed, or hopeless: Not at all 3. Trouble falling or staying asleep, or sleeping too much: More than half the days 4. Feeling tired or having little energy: More than half the days 5. Poor appetite or overeating: Several days 6. Feeling bad about yourself -- or that you are a failure or have let yourself or your family down: Not at all 7. Trouble concentrating on things, such as reading the newspaper or watching television: Not at all 8. Moving or speaking so slowly that other people could have noticed. Or the opposite - being so fidgety or restless that you have been moving around a lot more than usual: Not at all 9. Thoughts that you would be better off , or of hurting yourself in some way: Not at all How difficult have these problems made it for you to do your work, take care of things at home, or get along with other people?: Somewhat difficult Total Score: 5 ANTOINETTE-Q SV Test - Statements CAD is a disease of the arteries in the heart: False Examples of risk factors for heart disease: True Angina is chest pain or discomfort: True The benefits of resistance training include: True Eating more meat and dairy products: False Anti-platelet medications such as aspirin are important: True The only effective way to manage stress: False An exercise warm-up slowly increases heart rate: True Prepared, processed foods usually have high sodium: True Depression is common after a heart attack: I Don't Know The statin medications lower cholesterol: True To control blood pressure, lower the amount of sodium: True If someone gets chest discomfort during walking: False Transfats are partially hydrogenated vegetable oils: I Don't Know Sleep apnea that is not treated increases the risk: I Don't Know To control cholesterol, one should become a vegetarian: False Someone knows if he/she is exercising at the right level: True Diabetes cannot be prevented with exercise & health eating: I Don't Know Stress is a large risk for heart attack: True A diet that can help lower blood pressure is rich in: True - Total Score Total Correct Responses: 16 Self-Efficacy Initial Assessment We would like to know how confident you are in doing certain activities. Please select your confidence level for:: Select your confidence level for the following using the scale 1-10 where 1 is not at all confident and 10 is totally confident. Your score is the average of all 6 responses. Fatigue: How confident are you that you can keep the fatigue caused by your disease from interfering with the things you want to do? Select Number: 7 Physical Discomfort or Pain: How confident are you that you can keep the physical discomfort or pain of your disease from interfering with the things you want to do? Select Number: 6 Emotional Distress: How confident are you that you can keep the emotional distress caused by your disease from interfering with the things you want to do? Select Number: 9 Other Symptoms or Health Problems: How confident are you that you can keep other symptoms or health problems from interfering with the things you want to do? Select Number: 7 Different Tasks and Activities: How confident are you that you can do the different tasks and activities needed to manage your health condition so as to reduce your need to see a doctor? Select Number: 8 Medication: How confident are you that you can do things other than just taking medication to reduce how much your illness affects your everyday life? Select Number: 7 Total Score:: 7 Nutrition Survey - Nutrition Survey Instructions Scoring Instructions: Scoring is as follows: Yes = 1 points. No = 0 point. Patient score that is >/=12 is considered to be at potential nutritional risk and could benefit from a referral to a registered dietitian. - Nutrition Survey Initial Have you lost >10 lbs over the past 2 months without trying?: Yes Are you following a special diet at home for diabetes, low fat, or low salt?: Yes Are you interested in meeting with a dietitian for help understanding your diet?: No Do you eat less than 3 meals a day?: No Do you eat fatty meats (campbell, sausage, ribs, etc), fried foods, desserts, large amounts of salad dressings, margarine, butter, or cheese most days?: No Do you have food allergies? [Enter types in comment field]: No Do you eat in restaurants more than 3 times a week?: No Do you season food with salt, seasoning salt, or garlic salt?: No Do you used canned, boxed, frozen meals, or soups, seasoning packets?: Yes Total Score:: 3
--- NOTE | 2018-01-29 12:12 | PCM.CR.HP2 ---
CR - History & Physical - General Arrival date:: 01/29/18 Arrival time:: 12:12 Date of Referral:: 01/29/18 Date of CR Evaluation:: 01/29/18 Referring Physician: Dr. Nella Rangel Primary Diagnosis: CABG - History of Present Cardiac Event Onset Date: Enter Onset Date of cardiac illnesses in Comment field below Current stable Angina Pectoris:: No Acute Myocardial Infarction within 12 months:: Yes - 12/20/17 Coronary Artery Bypass Graft:: Yes - 12/22/17 Heart valve replacement or repair:: No PTCA or coronary stenting:: No Heart or Heart-Lung Transplant:: No Heart Failure EF <35%:: Yes Type of Symptoms:: Chest pain, arms tingling. Interventions with present event:: heart cath, echo. Were there any complications?: atrial fib and low CO post op - Medications Home Medications: Ambulatory Orders Medication Instructions Recorded Multivitamin [Daily Multiple 1 ea PO DAILY 12/20/17 Vitamin] Omeprazole [Prilosec] 20 mg PO DAILY 12/20/17 Aspirin [Aspirin, Baby] 81 mg PO DAILY@0800 12/28/17 Atorvastatin Calcium [Lipitor] 80 mg PO QHS 12/28/17 Fluticasone/Salmeterol [Advair Hfa 2 puff INHALATION BID 12/28/17 115-21 Mcg Inhaler] Lisinopril [Zestril] 2.5 mg PO DAILY 12/28/17 metformin 500 mg tablet 500 mg PO BID tab 01/12/18 metoprolol tartrate 50 mg tablet 50 mg PO BID 01/12/18 melatonin 5 mg capsule 2.5 mg PO PRN cap 01/14/18 Clopidogrel Bisulfate [Plavix] 75 mg PO DAILY 01/29/18 - Allergies Allergies/Adverse Reactions: Allergies No Known Allergies Allergy (Verified 01/14/18 09:57) - Sleep Disorder Evaluation Hx of Sleep Apnea: No Do you snore loudly (louder than talking or can be heard through closed doors)?: Yes Do you often feel tired/ fatigued/ sleepy during daytime?: Yes Has anyone observed you stop breathing during sleep?: Yes History of Hypertension (for STOP score): Yes STOP Results: Positive Advanced Directives - Advanced Directives Power of Datapower Developer: No Living Will: No Advance Directives Information Provided: Yes Advance Directives on File: No DNR Order?:: No Past Medical History - Past Medical Illness Medical History: Past Medical History (Last Reviewed 01/14/18 @ 10:32 by Ishaan Rangel MD) 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 Postoperative atrial fibrillation (Acute) I97.89, I48.91 Ischemic cardiomyopathy (Acute) I25.5 Atherosclerosis of coronary artery of [place] heart with angina pectoris (Acute) I25.119 CABG x 4 RUT-LAD, SVG-OM2, SVG-LCx, SVG-Right PDA 12/22/2017 Non-ST elevation (NSTEMI) myocardial infarction (Acute) I21.4 Nicotine dependence (Chronic) F17.200 Obesity (Chronic) E66.9 GERD (gastroesophageal reflux disease) K21.9 - Past Surgical History Surgical History: Past Surgical History (Last Reviewed 01/14/18 @ 10:32 by Ishaan Rangel MD) H/O coronary artery bypass surgery (Acute) Onset Date: 12/22/17 Z95.1 CABG x 4 RUT-LAD, SVG-OM2, SVG-LCx, SVG-Right PDA 12/22/2017 @ [facility] Tristian Khanna Surgical History: - - vasectomy Social History - Smoking History Smoking Status: Former smoker Years Smokin Packs Smoked per Day: 1.5 Hx Smoking Cessation Date: stopped 12/20/17 Hx Tobacco Use: No Hx Smoking Exposure: No - Alcohol Use Alcohol Usage: No - Substance Abuse Hx Substance Use: No - Occupation Occupation (List type of work in comments):: Employed Hours worked per day:: 8 Returned to work on:: 02/09/18 - Hobbies, Recreation, Social Activities Hobbies: Other - golfing, pool, poker. Recreational Activities: I am able to engage in a few activities Social Environment - Status Marital Status: Single - Current Living Arrangements Living Environment:: Family - girlfriend - Children How many children do you have?: 3 Do any of your children live nearby?: No - Safety Do you feel safe in your surroundings?: Yes - Assistance Do you need any assistance at home?: no Review of Systems - Review of Systems Hints: Right click = Denies (Slash). Left click = Reports ([place]) Review of Present Symptoms: Reports: Operative Discomfort - chest wall pain., Wound Healing, Fatigue, Appetite - Normal, Appetite - Special Diet - cardiac, Sleep - Normal. Denies: Shortness of Breath at Rest, Shortness of Breath with Exertion, PVD, Angina, Dizziness/Lightheadedness, Heart Arrhythmia/Irregularities, Sexual Changes - Pain Is Patient Pain Free?: Yes Pain Location: chest, lower extremity - left leg where vein was harvested. Pain Level: 5/10 Previous experience dealing with pain?: doesn't take anything Risk Factor Assessment - Vital Signs Pulse Ox: 96 - Pulse Pulse Rate: 79 Pulse Rhythm: Regular - Hypertension How long have you been treated?: 15 years On medication(s)?: no Blood Pressure Sitting - Right Arm: 120/80 Blood Pressure Sitting - Left Arm: 114/80 - Stress Stress: Work-related - Diabetes Diabetic History: Medication Dependent - prediabetic labs now on Metformin Nutrition Referral for Diabetes: Yes - Obesity Height: 1.77 m Weight:: 114.305 kg Weight in Pounds: 252.0 lbs Weight Source: Stated by Patient Body Mass Index (BMI): 36.6 Desired Body Weight: 165 Realistic Weight Goal (Loss of 1-2 lbs/week): 240 Nutritional Referral for Obesity: Yes - Physical Inactivity Physical Inactivity: Reg Exercise 30 min/day - Risk Stratification Risk Guidelines: Lowest Risk: Risk Factor for Hypertension, Risk Factor for Sedentary Lifestyle, Risk Factor for Depression, Moderate Risk: Risk Factor for Smoking, Risk Factor for Dyslipidemia, Risk Factor for Diabetes, Risk Factor for Obesity - For Smoking Smoking Risk Guidelines: Smoking Low Risk: None or quit greater than 6 months ago. Smoking Moderate Risk: Smoker or quit 6 months or less ago. Smoking High Risk: Smoker - For Dyslipidemia Dyslipidemia Risk Guidelines: Low Risk: Moderate Risk: High Risk: 15-25% fat 25.1-29% fat >/= 30% fat. <7% sat fat 7-9% sat fat >9% sat fat. <150 mg chol 150-299 mg chol >/= 300 mg chol. LDL <100 LDL 100-129 LDL >/= 130. Chol/HDL ratio <5.0 Chol/HDL ratio 5.0-6.0 Chol/HDL ratio >6.0. Triglycerides <100 Triglycerides 100-149 Triglycerides >/= 150 - For Diabetes Mellitus Diabetes Risk Guidelines: Diabetes Low Risk: HgA1c <6.5% and/or FBG <120. Diabetes Moderate Risk: HgA1c 6.6-7.9% and/or FBG 120-180. Diabetes High Risk: HgA1c >/= 8% and/or FBG >180 - For Obesity/Overweight Obesity/Overweight Risk Guidelines: Obesity Low Risk: BMI <25.0. Obesity Moderate Risk: BMI 25-29.9. Obesity High Risk: BMI >/= 30.0 - For Hypertension Hypertension Risk Guidelines: Hypertension Low Risk: Systolic <120 and Diastolic <80. Hypertension Moderate Risk: Systolic 120-139 and Diastolic 80-89. Hypertension High Risk: Systolic >/= 140 and Diastolic >/= 90 - For Sedentary Lifestyle Sedentary Lifestyle Risk Guidelines: Sedentary Lifestyle Low Risk: >/= 1,500 kcal/week. Sedentary Lifestyle Moderate Risk: 700-1,499 kcal/week. Sedentary Lifestyle High Risk: < 700 kcal/week - For Depression Depression Risk Guidelines: Depression Low Risk: Not clinically depressed. Depression Moderate Risk: Mildly depressed. Depression High Risk: Clinically depressed Motivation - Motivation to Participate On a scale of 1 to 10, how prepared are you to commit to attending program?: 8
--- NOTE | 2018-01-29 12:18 | CR.HP_ITS ---
CR - History & Physical - General Arrival date:: 01/29/18 Arrival time:: 12:12 Date of Referral:: 01/29/18 Date of CR Evaluation:: 01/29/18 Referring Physician: Dr. Nella Rangel Primary Diagnosis: CABG - History of Present Cardiac Event Onset Date: Enter Onset Date of cardiac illnesses in Comment field below Current stable Angina Pectoris:: No Acute Myocardial Infarction within 12 months:: Yes - 12/20/17 Coronary Artery Bypass Graft:: Yes - 12/22/17 Heart valve replacement or repair:: No PTCA or coronary stenting:: No Heart or Heart-Lung Transplant:: No Heart Failure EF <35%:: Yes Type of Symptoms:: Chest pain, arms tingling. Interventions with present event:: heart cath, echo. Were there any complications?: atrial fib and low CO post op - Medications Home Medications: Ambulatory Orders Medication Instructions Recorded Multivitamin [Daily Multiple 1 ea PO DAILY 12/20/17 Vitamin] Omeprazole [Prilosec] 20 mg PO DAILY 12/20/17 Aspirin [Aspirin, Baby] 81 mg PO DAILY@0800 12/28/17 Atorvastatin Calcium [Lipitor] 80 mg PO QHS 12/28/17 Fluticasone/Salmeterol [Advair Hfa 2 puff INHALATION BID 12/28/17 115-21 Mcg Inhaler] Lisinopril [Zestril] 2.5 mg PO DAILY 12/28/17 metformin 500 mg tablet 500 mg PO BID tab 01/12/18 metoprolol tartrate 50 mg tablet 50 mg PO BID 01/12/18 melatonin 5 mg capsule 2.5 mg PO PRN cap 01/14/18 Clopidogrel Bisulfate [Plavix] 75 mg PO DAILY 01/29/18 - Allergies Allergies/Adverse Reactions: Allergies No Known Allergies Allergy (Verified 01/14/18 09:57) - Sleep Disorder Evaluation Hx of Sleep Apnea: No Do you snore loudly (louder than talking or can be heard through closed doors)? 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 Postoperative atrial fibrillation (Acute) I97.89, I48.91 Ischemic cardiomyopathy (Acute) I25.5 Atherosclerosis of coronary artery of [place] heart with angina pectoris (Acute) I25.119 CABG x 4 RUT-LAD, SVG-OM2, SVG-LCx, SVG-Right PDA 12/22/2017 Non-ST elevation (NSTEMI) myocardial infarction (Acute) I21.4 Nicotine dependence (Chronic) F17.200 Obesity (Chronic) E66.9 GERD (gastroesophageal reflux disease) K21.9 - Past Surgical History Surgical History: Past Surgical History (Last Reviewed 01/14/18 @ 10:32 by Ishaan Rangel MD) H/O coronary artery bypass surgery (Acute) Onset Date: 12/22/17 Z95.1 CABG x 4 RUT-LAD, SVG-OM2, SVG-LCx, SVG-Right PDA 12/22/2017 @ [facility] Tristian Khanna Surgical History: - - vasectomy Social History - Smoking History Smoking Status: Former smoker Years Smokin Packs Smoked per Day: 1.5 Hx Smoking Cessation Date: stopped 12/20/17 Hx Tobacco Use: No Hx Smoking Exposure: No - Alcohol Use Alcohol Usage: No - Substance Abuse Hx Substance Use: No - Occupation Occupation (List type of work in comments):: Employed Hours worked per day:: 8 Returned to work on:: 02/09/18 - Hobbies, Recreation, Social Activities Hobbies: Other - golfing, pool, poker. Recreational Activities: I am able to engage in a few activities Social Environment - Status Marital Status: Single - Current Living Arrangements Living Environment:: Family - girlfriend - Children How many children do you have?: 3 Do any of your children live nearby?: No - Safety Do you feel safe in your surroundings?: Yes - Assistance Do you need any assistance at home?: no Review of Systems - Review of Systems Hints: Right click = Denies (Slash). Left click = Reports ([place]) Review of Present Symptoms: Reports: Operative Discomfort - chest wall pain., Wound Healing, Fatigue, Appetite - Normal, Appetite - Special Diet - cardiac, Sleep - Normal. Denies: Shortness of Breath at Rest, Shortness of Breath with Exertion, PVD, Angina, Dizziness/Lightheadedness, Heart Arrhythmia/ Irregularities, Sexual Changes - Pain Is Patient Pain Free?: Yes Pain Location: chest, lower extremity - left leg where vein was harvested. Pain Level: 5/10 Previous experience dealing with pain?: doesn't take anything Risk Factor Assessment - Vital Signs Pulse Ox: 96 - Pulse Pulse Rate: 79 Pulse Rhythm: Regular - Hypertension How long have you been treated?: 15 years On medication(s)?: no Blood Pressure Sitting - Right Arm: 120/80 Blood Pressure Sitting - Left Arm: 114/80 - Stress Stress: Work-related - Diabetes Diabetic History: Medication Dependent - prediabetic labs now on Metformin Nutrition Referral for Diabetes: Yes - Obesity Height: 1.77 m Weight:: 114.305 kg Weight in Pounds: 252.0 lbs Weight Source: Stated by Patient Body Mass Index (BMI): 36.6 Desired Body Weight: 165 Realistic Weight Goal (Loss of 1-2 lbs/week): 240 Nutritional Referral for Obesity: Yes - Physical Inactivity Physical Inactivity: Reg Exercise 30 min/day - Risk Stratification Risk Guidelines: Lowest Risk: Risk Factor for Hypertension, Risk Factor for Sedentary Lifestyle, Risk Factor for Depression, Moderate Risk: Risk Factor for Smoking, Risk Factor for Dyslipidemia, Risk Factor for Diabetes, Risk Factor for Obesity - For Smoking Smoking Risk Guidelines: Smoking Low Risk: None or quit greater than 6 months ago. Smoking Moderate Risk: Smoker or quit 6 months or less ago. Smoking High Risk: Smoker - For Dyslipidemia Dyslipidemia Risk Guidelines: Low Risk: Moderate Risk: High Risk: 15-25% fat 25.1-29% fat >/= 30% fat. <7% sat fat 7-9% sat fat >9% sat fat. <150 mg chol 150-299 mg chol >/= 300 mg chol. LDL <100 LDL 100-129 LDL >/= 130. Chol/HDL ratio <5.0 Chol/HDL ratio 5.0-6.0 Chol/HDL ratio >6.0. Triglycerides <100 Triglycerides 100-149 Triglycerides >/= 150 - For Diabetes Mellitus Diabetes Risk Guidelines: Diabetes Low Risk: HgA1c <6.5% and/or FBG <120. Diabetes Moderate Risk: HgA1c 6.6-7.9% and/or FBG 120-180. Diabetes High Risk: HgA1c >/= 8% and/or FBG >180 - For Obesity/Overweight Obesity/Overweight Risk Guidelines: Obesity Low Risk: BMI <25.0. Obesity Moderate Risk: BMI 25-29.9. Obesity High Risk: BMI >/= 30.0 - For Hypertension Hypertension Risk Guidelines: Hypertension Low Risk: Systolic <120 and Diastolic <80. Hypertension Moderate Risk: Systolic 120-139 and Diastolic 80-89. Hypertension High Risk: Systolic >/= 140 and Diastolic >/= 90 - For Sedentary Lifestyle Sedentary Lifestyle Risk Guidelines: Sedentary Lifestyle Low Risk: >/= 1 ,500 kcal/week. Sedentary Lifestyle Moderate Risk: 700-1,499 kcal/week. Sedentary Lifestyle High Risk: < 700 kcal/week - For Depression Depression Risk Guidelines: Depression Low Risk: Not clinically depressed. Depression Moderate Risk: Mildly depressed. Depression High Risk: Clinically depressed Motivation - Motivation to Participate On a scale of 1 to 10, how prepared are you to commit to attending program?: 8
[2018-01-29 13:25] VITALS: BP 114/80; BP 120/80; PULSE 79; O2SAT 96; BMI 36.6
== END ==
PROVIDERS: Family Provider Family Medicine; PCP Family Medicine; Visit Provider Family Medicine
DX: Z95.1 Presence of aortocoronary bypass graft (principal)

== ENCOUNTER 2018-02-13 08:00 | Outpatient (RCR) | payer OTHER, SELFPAY ==
--- NOTE | 2018-02-06 15:32 | PCM.CR.ITP ---
General Information - General Information Admitting Diagnosis: CABG - Education/Goals Cardiac Rehabilitation Goals: 1. Maintain the individual as the primary focus of care. 2. To improve the patient's quality of life. 3. Identification of cardiac risk factors and provide cardiac risk factor management. 4. Enhance the psychosocial status of the patient. 5. Reconditioning enough to allow the patient to resume customary activities. 6. Control symptoms of cardiac disease Scale for measuring improvement of personal goals: Enter appropriate number in Comments. 2 = Unchanged. 3 = Slightly Better. 4 = Moderate Improvement. 5 = Met my Goal Exercise - 30-day Assessment - Visit Date of Eval: 02/06/18 Session #:: 3 - Stages of Change Stages of Change:: Action - Exercise Prescription Mode:: Treadmill, Airdyne, NuStep Frequency (x/week): 3 Duration:: 30 METs - Progression: 0.5-1 MET as tolerated: 2.5 Target Heart Rate:: 98-118 Max HR 100 - Hypertension Resting Blood Pressure:: 114/80 Peak Exercise Blood Pressure:: 130/82 - Intervention Home Exercise/Activity Goal:: Sitting Time <3 hrs/day - Education Goals:: Warm-up, RPE DEMETRIO Scale, S/S, Safe Exercise, Self-Monitoring - Exercise Program Goals Exercise Program Goals: Aerobic Activity >30 min, B/P <130/80 Nutrition - Initial Assessment - Program Goals Nutrition Program Goals: LDL <70. Total Cholesterol <200. HDL >45. Triglycerides <150. HgbA1C <7%. BMI <25 - Diabetes Do you monitor your blood sugar at home?: Yes - on metformin Nutrition - 30-Day Assessment - Program Goals Nutrition Program Goals: LDL <70. Total Cholesterol <200. HDL >45. Triglycerides <150. HgbA1C <7%. BMI <25 - Visit Date of Eval: 02/06/18 - Stages of Change Stages of Change:: Action - Lipids Has the patient seen the dietitian?: No - Diabetes Diabetes:: Yes Insulin: No Non-Insulin Dependent?: No - Intervention Referral to dietitian:: Yes Referral to Diabetic Clinic:: Yes Will attend diet classes:: Yes - Education Attended class for:: Signs & symptoms of hypoglycemia, Signs & symptoms of hyperglycemia, Relate diabetes to coronary artery disease, Healthy eating Tobacco - Initial Assessment - Program Goals Tobacco Program Goals: Complete smoking cessation. Attend education classes. Improve Knowledge Test score - Learning Barriers Learning Barriers: Vision - wears reading glasses, Ready to Learn Tobacco - 30-Day Assessment - Program Goals Tobacco Program Goals: Complete smoking cessation. Attend education classes. Improve Knowledge Test score - Stage of Change Stages of Change:: Action - Learning Barriers Learning Barriers: Participates in education - Family Support Do you have family support?: Yes - Tobacco Use Tobacco Use: Non-smoker Date quit:: 12/20/17 Do you use smokeless tobacco?: No - Intervention Smoking Cessation Referral:: Yes Individual Education/Counseling:: Yes Education Schedule Given:: Yes - Education Attended class for:: Tobacco triggers, Coronary artery disease, Risk factors, Sexuality, Medical compliance, Cardiac A&P, Angina signs & symptoms Psychosocial - Initial Assess - Target Goals Target Goals: Assess presence or absence of depression. Using a valid screening tool, maximizes coping skills. Positive support system - Psychosocial Test Tool Used:: HANDS Depression Questionnaire - Assistive Devices Fall Risk Assessed:: Yes Psychosocial - 30-Day Assess - Target Goals Target Goals: Assess presence or absence of depression. Using a valid screening tool, maximizes coping skills. Positive support system - Stages of Change Stages of Change:: Action - Psychosocial Test Tool Used:: HANDS Depression Questionnaire - Intervention PS - Interventions: Yes Attend Stress Management Classes, Yes Uses Stress Management Skills, No Referral to Mental Health, No Referral to [facility] Case Management, No Referral to Physician - Education Attended classes for:: Coping techniques, Signs & symptoms of depression, Stress management, Relaxation techniques - Assistive Devices Assistive Devices:: None Fall Risk Assessed:: Yes Patient Health Questionnaire 30-Day Re-eval Assessment 1. Little interest or pleasure in doing things: Not at all 2. Feeling down, depressed, or hopeless: Not at all 3. Trouble falling or staying asleep, or sleeping too much: More than half the days 4. Feeling tired or having little energy: More than half the days 5. Poor appetite or overeating: Several days 6. Feeling bad about yourself -- or that you are a failure or have let yourself or your family down: Not at all 7. Trouble concentrating on things, such as reading the newspaper or watching television: Not at all 8. Moving or speaking so slowly that other people could have noticed. Or the opposite - being so fidgety or restless that you have been moving around a lot more than usual: Not at all 9. Thoughts that you would be better off , or of hurting yourself in some way: Not at all How difficult have these problems made it for you to do your work, take care of things at home, or get along with other people?: Not difficult at all Total Score: 5 Self-Efficacy 30-Day Re-eval Assessment We would like to know how confident you are in doing certain activities. Please select your confidence level for:: Select your confidence level for the following using the scale 1-10 where 1 is not at all confident and 10 is totally confident. Your score is the average of all 6 responses. Fatigue: How confident are you that you can keep the fatigue caused by your disease from interfering with the things you want to do? Select Number: 7 Physical Discomfort or Pain: How confident are you that you can keep the physical discomfort or pain of your disease from interfering with the things you want to do? Select Number: 6 Emotional Distress: How confident are you that you can keep the emotional distress caused by your disease from interfering with the things you want to do? Select Number: 9 Other Symptoms or Health Problems: How confident are you that you can keep other symptoms or health problems from interfering with the things you want to do? Select Number: 7 Different Tasks and Activities: How confident are you that you can do the different tasks and activities needed to manage your health condition so as to reduce your need to see a doctor? Select Number: 8 Medication: How confident are you that you can do things other than just taking medication to reduce how much your illness affects your everyday life? Select Number: 7 Total Score:: 7
[2018-02-06 15:37] VITALS: BP 114/80; BP 130/82
== END 2018-02-13 23:59 ==
LOC: CR 08:00
PROVIDERS: Family Provider Family Medicine; PCP Family Medicine; Visit Provider Internal Medicine Cardiovascular Disease
DX: Z95.1 Presence of aortocoronary bypass graft (principal)
CPT/HCPCS: 93798

== ENCOUNTER 2018-02-18 08:12 | Outpatient (RCR) | payer OTHER, SELFPAY ==
[2018-02-14 01:49] VITALS: BP 114/80; BP 130/82
== END 2018-03-15 23:59 ==
LOC: CR 08:12
PROVIDERS: Family Provider Family Medicine; PCP Family Medicine; Visit Provider Internal Medicine Cardiovascular Disease
DX: Z95.1 Presence of aortocoronary bypass graft (principal)
CPT/HCPCS: 93798

== ENCOUNTER → 2018-04-16 07:48 | Outpatient (CLI) | payer OTHER, SELFPAY ==
--- NOTE | 2018-04-16 07:50 | ECHOCS_ITS ---
Reason For Study: S/P CABG Procedure This was a 2D Doppler, Color Flow transthoracic echocardiogram. The study was technically difficult. Contrast injection was performed. Exam performed in department. Left Ventricle Normal LV size. The estimated ejection fraction is 50 %. Septal motion consistent with IVCD. Stage 1 diastolic dysfunction. No regional wall motion abnormalities noted. Right Ventricle Normal RV size. Normal systolic function. Atria Normal left atrium. Normal right atrium. Patent foramen ovale. Mitral Valve Normal mitral valve. Tricuspid Valve Normal tricuspid valve. Mild tricuspid valve insufficiency. Pulmonary artery systolic pressure is 23 mmHg. Aortic Valve Normal aortic valve. Trisinus/trileaflet aortic valve. Pulmonic Valve Normal pulmonic valve. Great Vessels Normal aortic root. The pulmonary artery is normal size. Normal inferior vena cava. Pericardium/Pleural No pericardial effusion. Medication 22 gauge I.V. with prn adaptor inserted into right arm. Diluted definity 5ml given slow IV push to enhance endocardial definition. Performed a rapid injection of agitated mix of 9 cc saline and 1cc air to assess for atrial septal defect. MMode/2D Measurements & Calculations LVIDd: 5.4 cm IVSd: 1.0 cm Ao root diam: 3.4 cm LVIDs: 4.5 cm LVPWd: 1.3 cm LA dimension: 4.4 cm RVDd: 3.6 cm FS: 16.9 % LAV(MOD-bp): 69.0 ml LVAd ap4: 40.3 cm2 SV(MOD-sp4): 78.3 ml LAV(MOD-bp) Indexed: 29.4 ml/m2 EDV(MOD-sp4): 142.8 ml LAV(MOD-sp2): 69.8 ml EDV(sp4-el): 148.6 ml LAV(MOD-sp4): 65.8 ml LVAs ap4: 24.2 cm2 ESV(MOD-sp4): 64.5 ml ESV(sp4-el): 63.6 ml EF(MOD-sp4): 54.8 % EF(sp4-el): 57.2 % SV(sp4-el): 85.0 ml LA A4 area: 21.1 cm2 RA A4 area: 21.0 cm2 Time Measurements MV dec time: 0.25 sec Doppler Measurements & Calculations MV E max morgan: 55.6 cm/sec Lat Peak E' Morgan: 12.3 cm/sec Med Peak E' Morgan: 6.8 cm/sec MV A max morgan: 58.2 cm/sec E/E' lat: 4.5 E/E' med: 8.1 MV E/A: 0.96 MV V2 max: 71.3 cm/sec MV P1/2t max morgan: 70.6 cm/sec Ao V2 max: 104.2 cm/sec MV max P.0 mmHg MV P1/2t: 61.1 msec Ao max P.3 mmHg MV V2 mean: 45.0 cm/sec MV dec slope: 338.5 cm/sec2 Ao V2 mean: 74.8 cm/sec MV mean P.91 mmHg MVA(P1/2t): 3.6 cm2 Ao mean P.5 mmHg MV V2 VTI: 17.5 cm Ao V2 VTI: 18.7 cm LV V1 max: 76.4 cm/sec PA V2 max: 104.0 cm/sec TR max morgan: 213.5 cm/sec LV V1 max P.3 mmHg TR max P.2 mmHg LV V1 mean P.2 mmHg LV V1 mean: 50.7 cm/sec LV V1 VTI: 13.7 cm Interpretation Summary Normal LV size. The estimated ejection fraction is 50 %. Septal motion consistent with IVCD. Stage 1 diastolic dysfunction. Patent foramen ovale. Ordering Physician: Ishaan Rangel Referring Physician: Syd Godoy Performed By: Papo Conn RCS
== END ==
PROVIDERS: Family Provider Family Medicine; PCP Family Medicine; Referring Provider Internal Medicine Cardiovascular Disease; Visit Provider Internal Medicine Cardiovascular Disease
DX: I25.5 Ischemic cardiomyopathy (principal); Z95.1 Presence of aortocoronary bypass graft
CPT/HCPCS: 93306; Q9957; A4216; C8929

== ENCOUNTER 2018-07-24 07:31 | Inpatient (IN) | payer OTHER, SELFPAY ==
[2018-05-26 14:49] VITALS: BMI 39.4
[2018-07-24] VITALS (19 sets, daily range): BP systolic 140–180; BP diastolic 77–115; PULSE 74–116; RESP 13–23; TEMP 36.2–37.2; O2SAT 91–100; BMI 36.1; BMI 36.2; BMI 38.7
--- NOTE | 2018-07-24 07:49 | EKG12_ITS ---
Test Reason : DIZZINESS Blood Pressure : / mmHG Vent. Rate : 094 BPM Atrial Rate : 094 BPM P-R Int : 180 ms QRS Dur : 094 ms QT Int : 374 ms P-R-T Axes : 058 023 115 degrees QTc Int : 467 ms Normal sinus rhythm Possible Inferior infarct , age undetermined T wave abnormality, consider lateral ischemia Abnormal ECG Confirmed by HAILEE PANIAGUA, MART ([id number]), editor in chief UMA TIRADO ([id number]) on 07/27/2018 10:16:25 AM Referred By: CARLOS Confirmed By:MART STEPHEN MD
--- NOTE | 2018-07-24 07:53 | ED.DCSUM_ITS ---
- ER Visit Summary Date of Service: 07/24/18 Chief Complaint: Vertigo History of Present Illness: The patient is a 48 M who stood up from a seated position around 8 PM last evening and had sudden onset of a spinning sensation. Symptoms continued throughout the night. He has had nausea and vomiting. He wa s not able to take his evening meds last night. Patient has had left ear pain stating it feels like it is under water for the past 3 or 4 days. He states that pain resolved when his vertigo started. He has never had similar symptoms. Patient does have significant history for CT last summer and underwent cardiac bypass surgery. He denies chest pain or palpitations. Physical Examination: Blood pressure is 140/96, temperature 97.2, heart rate 86, respiratory rate 22, pulse ox 100% on room air. Patient is resting with eyes closed. He complains of nausea. Head and neck examination otherwise unremarkable. Pupils equal and reactive. Heart is regular rate and rhythm. Lungs sounds are clear. Abdomen is soft nontender. Neuro exam reveals no focal deficits. Patient symptoms are worsened with head rotation. Test Results: EKG is sinus at [address] change[address] Head CT unremarkable. CBC was a white count of 13.0 and hemoglobin concentrated at 17.2. Chemistry studies reveal glucose of 166. Creatinine is 1.7. Emergency Department Course and Treatment: He had mild improvement with this and received a dose of Antivert. Patient had continued waxing and waning symptoms and ultimately received multiple rounds of medication. He declined hospital admission multiple x1 to try further treatment, but at this point has been in the emergency room for 7 hours. At this time he states his vertigo is improving. If he concentrates he can focus on items. He will be admitted for further treatment. Treatment Plan: [] Disposition: Admit Impression: Intractable vertigo This note was generated with [employer] dictation software. It may contain incorrect words, spelling, and punctuation that were not noted in review of the chart prior to signing ED Disposition - Plan for ED Patient: Referrals: Syd Godoy MD [Primary Care Provider] -
[2018-07-24] MEDS: Ondansetron 4 MG/2 ML Vial IV ×3 (07:58→21:03)
[2018-07-24] MEDS: 0.9% Normal Saline 1,000 ML 150 ML IV ×2 (07:58→15:31)
[2018-07-24] MEDS: LORazepam 2 MG/ML Syringe 0.5 MG IV (07:58)
[2018-07-24 08:23] LABS: Absolute Lymphocyte Count 1.42 X10^3/ul (0.83-4.51); Absolute Neutrophil Count 11.1 X10^3/uL (2.0-7.7); Basophil# 0.01 X10^3/uL; Basophil% 0.1 % (0-1); Hematocrit 48.1 % (40-54); Hemoglobin 17.2 g/dl (13.0-16.5); Lymphocyte # 1.42 X10^3/ul (4.0); Lymphocyte % 10.9 % (19-41); Mean Corp Hgb Conc 35.8 g/gl (32-36); Mean Corpuscular Hgb 30.2 pg (27.0-32.0); Mean Corpuscular Volume 84.5 fL (80-94); Mean Platelet Vol. 10.4 fl (6.2-12.0); Monocyte# 0.49 X10^3/uL; Monocyte% 3.8 % (0-10); Neutrophil # 11.07 X10^3/uL (2.7-7.7); POSITIVE COUNT NO; POSITIVE DIFFERENTIAL NO; POSITIVE MORPHOLOGY NO; Platelet Count 261 K/mm3 (150-450); RBC Distribution Width CV 13.3 % (11.6-14.6); RBC Distribution Width SD 40.9 fl (35.1-43.9); Red Blood Count 5.69 M/mm3 (4.6-6.2)
[2018-07-24 08:29] LABS: Anion Gap 14 (5-15); BUN 18 mg/dL (7-18); BUN/Creat Ratio 10.6 RATIO (10-20); Calcium,Total 9.3 mg/dL (8.5-10.1); Chloride 102 mmol/L (98-107); EST Glomerular Filtration Rate 46 mL/min (>60); Est Glom Filt Rate - Afr Amer 55 mL/min (>60); Estimated Creatinine Clearance 52.56 ml/min; Glucose 188 mg/dL (74-106); Potassium 3.9 mmol/L (3.5-5.1); Sodium Level 137 mmol/L (136-145)
[2018-07-24] MEDS: 0.9% Normal Saline 1,000 ML 999 ML IV (08:50)
[2018-07-24] MEDS: Meclizine HCl 25 MG Tablet PO (08:50)
--- NOTE | 2018-07-24 08:58 | CT_ITS ---
STUDY: CT BRAIN WITHOUT CONTRAST REASON FOR EXAM: Male, 48 years old. Dizziness. Nausea. RADIATION DOSAGE (If Supplied By Facility): CTDIvol = ( 44.99 ) mGy, DLP = ( 812.98 ) mGycm TECHNIQUE: Transaxial CT imaging of the brain was performed without administration of intravenous contrast material. Individualized dose optimization techniques were used for this CT. COMPARISON: None. FINDINGS: Normal soft tissue structures. Normal calvarium. Normal size ventricles and extra-axial spaces for the patient's age. Normal white matter tracts of the cerebral hemispheres. Normal basal ganglia and thalami. Normal brainstem. Normal cerebellum. There is no intracranial hemorrhage. There are no findings of an acute ischemic infarction. Mild degree of mucosal thickening of the maxillary sinuses bilaterally. CT/Brain/Head without Contrast IMPRESSION: Normal unenhanced CT scan of the brain. Electronically Signed: Jairo Villegas MD at 9:28 EST , Service support ,
--- NOTE | 2018-07-24 11:17 | ED.RN ---
VOMITED APPROX 100 CC BROWN FLUID PRIOR TO THIS NURSE ENTERING ROOM. DR NOTIFIED. TO HOLD PO MED AT THIS TIME.
[2018-07-24] MEDS: proMETHazine 25 MG/ML Syringe 12.5 MG IV (13:51)
[2018-07-24] MEDS: diazePAM 2 MG Tablet 4 MG PO (14:14)
[2018-07-24] MEDS: Famotidine 20 MG Tablet 40 MG PO (14:14)
[2018-07-24] MEDS: Metoprolol Tartrate 25 MG Tablet 50 MG PO (14:15)
--- NOTE | 2018-07-24 15:02 | NURSING ---
DR HAYNES FOR DR GONZALEZ
--- NOTE | 2018-07-24 15:11 | PCM.HP.STD ---
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 (3) Ischemic cardiomyopathy Status: Chronic (4) H/O coronary artery bypass surgery Status: Chronic Comment: CABG x 4 RUT-LAD, SVG-OM2, SVG-LCx, SVG-Right PDA 12/22/2017 @ [facility] Tristian Khanna (5) Obesity Status: Chronic Qualifiers: Obesity type: unspecified obesity type Body mass index: BMI 34.0-34.9 (6) GERD (gastroesophageal reflux disease) Status: Acute Qualifiers: Esophagitis presence: esophagitis presence not specified Qualified Code(s): K21.9 - Gastro-esophageal reflux disease without esophagitis History of Present Illness Date of Admission: 07/24/18 Chief Complaint: Dizziness-2 days The patient is a 48 year old M past medical history of CAD status post CABG, type II DM, hypertension, GERD with a 2-day history of dizziness. Patient was in his usual state of health and had complained of the left ear discomfort a few days prior. Denied any fever or chills or upper respiratory illnesses. He was said to have had a sudden onset of a spinning sensation while standing from sitting. Symptoms continued throughout the night with persistent nausea and vomiting. His vitals in the ED showed temperature 97.2 F, heart rate 86, which increased to about 120s, blood pressure was 140/96, respiratory rate was 22, he was 100% on room air. His WBC count was 13.0, hemoglobin 17.2, platelets 261, BMP was unremarkable except for creatinine of 1.70, increased from 1.04 CT scan of the brain was unremarkable. Past Medical History Past Medical History (Chronic Problems): Chronic Problems (Last Reviewed 05/26/18 @ 16:28 by Ishaan Rangel MD) Combined systolic and diastolic cardiac dysfunction (Chronic) Ischemic cardiomyopathy (Chronic) H/O coronary artery bypass surgery (Chronic 12/22/17) CABG x 4 RUT-LAD, SVG-OM2, SVG-LCx, SVG-Right PDA 12/22/2017 @ [facility] Tristian hKanna Nicotine dependence (Chronic) Obesity (Chronic) Medical History: Medical History (Last Reviewed 05/26/18 @ 16:28 by Ishaan Rangel MD) Combined systolic and diastolic cardiac dysfunction (Chronic) I51.89 Postoperative atrial fibrillation (Acute) I97.89, I48.91 Ischemic cardiomyopathy (Chronic) I25.5 Atherosclerosis of coronary artery of [place] heart with angina pectoris (Acute) I25.119 CABG x 4 RUT-LAD, SVG-OM2, SVG-LCx, SVG-Right PDA 12/22/2017 Non-ST elevation (NSTEMI) myocardial infarction (Resolved) I21.4 Nicotine dependence (Chronic) F17.200 Obesity (Chronic) E66.9 GERD (gastroesophageal reflux disease) K21.9 PFO (patent foramen ovale) Q21.1 Allergies No Known Allergies Allergy (Verified 07/24/18 07:32) Home Medications: Ambulatory Orders Medication Instructions Recorded Omeprazole [Prilosec] 20 mg PO DAILY 12/20/17 metformin 500 mg tablet 500 mg PO BID tab 01/12/18 aspirin 81 mg chewable tablet 81 mg PO DAILY@0800 #90 tab 03/09/18 omega-3 acid ethyl esters 1 gram 2 cap PO BID 05/26/18 capsule Atorvastatin Calcium [Lipitor] 80 mg PO QHS 07/24/18 Lisinopril [Zestril] 2.5 mg PO DAILY 07/24/18 Metoprolol Tartrate [Lopressor 50 mg PO BID 07/24/18 (beta cleve)] Multivitamin [Multivitamins] 1 each PO DAILY 07/24/18 Testosterone Booster Gnc Suppl 1 dose PO BID 07/24/18 Surgical History: Surgical History (Last Reviewed 05/26/18 @ 16:28 by Ishaan Rangel MD) H/O coronary artery bypass surgery (Chronic) Onset Date: 12/22/17 Z95.1 CABG x 4 RUT-LAD, SVG-OM2, SVG-LCx, SVG-Right PDA 12/22/2017 @ [facility] Tristian Khanna Surgical History: coronary bypass surgery, - - vasectomy Psychiatric History: No pertinent psych hx Lives: Spouse/ Significant Other Smoking Status: Former smoker Tobacco Use: Non-smoker Alcohol: None, Rare - *Family History Maternal History Items: Diabetes Paternal History Items: No pertinent history Review of Systems Constitutional: Reports: Anorexia, Weakness, Fatigue. Denies: Chills, Fever, Night Sweats, Weight Change Eyes: Reports: Blurred vision, Double vision, Vision Change. Denies: Cataracts, Conjunctivae Inflammation, Drainage, Eyelid Inflammation, Pain, Redness HEENT: Reports: Ear Pain - Left, Visual Changes. Denies: Difficulty Swallowing, Hard of Hearing, Head Aches, Hearing Changes, Sinus Congestion, Sinus Drainage, Sore Throat Cardiovascular: Denies: Chest Pain, Claudication, Orthopnea, Palpitations, Paroxysmal Noc. Dyspnea Respiratory: Denies: Cough, Shortness of breath at rest, Shortness of breath upon exertion, Sputum production Gastrointestinal: Denies: Abdominal Pain, Hematochezia, Nausea, Vomiting Genitourinary: Denies: Dysuria Musculoskeletal: Denies: Joint Pain, Joint stiffness, Joint swelling, Joint Tenderness Skin: Denies: Rash, Wounds Neurological: Denies: Numbness, Tingling, Focal weakness Psychiatric: Denies: Anxiety, Depression, Homicidal Ideations, Suicidal Ideations Hematologic/ Lymphatic: Denies: Easy Bruising, Easy Bleeding VTE Information - Inpt Only VTE Present on Admission: No VTE Pharm Prophylaxis ordered?: Yes Patient Problems: Active and Suspected Problems (Last Reviewed 05/26/18 @ 16:28 by Ishaan Rangel MD) Vertigo (Acute) GERD (gastroesophageal reflux disease) (Acute) - Physical Exam General: Alert, Oriented x3, Cooperative, - - Appears restless, eyes closed, nauseous, obese HEENT: Atraumatic, PERRLA, EOMI, Normocephalic Oral: Dry Mucosa Neck: Supple, No JVD, Negative Carotid Bruits Lungs: Clear to auscultation, Normal air movement Cardiovascular: Regular rate, Regular Rhythm, Normal S1, Normal S2, No murmurs Abdomen: Bowel Sounds Present, Soft, Non Tender, Non-Distended, No Hepato-splenomegaly Extremities: No edema Skin: No rashes, No breakdown Musculoskeletal: No Tenderness to Palpation of Joints or Extremities Lymphatic: No Cervical, Supraclavicular, or Inguinal Adenopathy Neurological: Cranial nerves II-XII grossly intact, Neuro grossly intact Psych/Mental Status: Normal Affect, Appropriate Vital Signs Temp Pulse Resp BP Pulse Ox 97.2 F L 110 H 22 H 152/88 H 97 07/24/18 07:32 07/24/18 13:53 07/24/18 13:53 07/24/18 13:53 07/24/18 13:53 Oxygen Delivery Method Room Air Weight: 111.13 kg Body Mass Index (BMI) 36.1 Laboratory Tests Past 24 Hrs 07/24/18 07/24/18 07:45 07:45 WBC 13.0 H RBC 5.69 Hgb 17.2 H Hct 48.1 MCV 84.5 MCH 30.2 MCHC 35.8 RDW 13.3 RDW Differential 40.9 Plt Count 261 MPV 10.4 Immature Gran % (Auto) 0.200 Neut % (Auto) 85.0 H Lymph % (Auto) 10.9 L Wright % (Auto) 3.8 Eos % (Auto) 0.0 Baso % (Auto) 0.1 Absolute Neuts (auto) 11.1 H Absolute Lymphs (auto) 1.42 Total Counted Not Reportable Sodium 137 Potassium 3.9 Chloride 102 Carbon Dioxide 21.0 Anion Gap 14 BUN 18 Creatinine 1.70 H Estim Creat Clear Calc 52.56 Est GFR (MDRD) Af Amer 55 L Est GFR (MDRD) Non-Af 46 L BUN/Creatinine Ratio 10.6 Glucose 188 H Calcium 9.3 Assessment/Plan All Active Problems (Last Reviewed 05/26/18 @ 16:28 by Ishaan Rangel MD) Vertigo (Acute) GERD (gastroesophageal reflux disease) (Acute) Dyspnea on exertion (Acute) Postoperative atrial fibrillation (Acute) Atherosclerosis of coronary artery of [place] heart with angina pectoris (Acute) Non-ST elevation (NSTEMI) myocardial infarction (Resolved) 48 year old M past medical history of CAD status post CABG, type II DM, hypertension, GERD with a 2-day history of dizziness. Patient was in his usual state of health and had complained of the left ear discomfort a few days prior. 1. Acute vertigo likely secondary to BPPV vs posterior circulation CVA, s/p multiple medications in the ED Plan: Admit to PCU, monitor on telemetry, continue with prn Zofran, Meclizine Neurology consult, MRI brain, MRA head and neck Continue on aspirin 2. ALEJANDRA likely secondary to dehydration, on IVF, labs in am 3. Leucocytosis, likely reactive, no signs of infection, will trend 4. CAD status post CABG/ischemic cardiomyopathy, EF 50%, no signs of acute CHF, on aspirin, statin, ACEI, metoprolol, continue same 5. Type II DM, on metformin, Will hold metformin, continue on accucheks with ISS 6. Hypertension, fairly uncontrolled now secondary to discomfort, was controlled earlier, on Lisinopril and metoprolol, will continue to monitor for now, will add hydralazine prn if needed 7. Obesity, BMI 38.7. diet and exercises recommended 8. DVT PPx- Heparin SC Code Visit Inpatient E&M: 20238 Init Hosp L3
--- NOTE | 2018-07-24 15:13 | NURSING ---
PCU VERTIGO PAINTSIL
[2018-07-24] MEDS: 0.9% Normal Saline 1,000 ML 100 ML IV (16:35)
[2018-07-24 16:46] LABS: Bedside Glucose 124 mg/dL (70-110)
--- NOTE | 2018-07-24 18:16 | MRI_ITS ---
We are attempting to reach Radhika Waters MD to discuss findings. An addendum with communication details will be sent when the communication is complete. HISTORY: CVA, sudden onset 24 hrs ago of dizziness, N/V EXAM/TECHNIQUE: MR Brain W/O Contrast: 1.5 Silva. COMPARISON: Noncontrast CT brain same date. FINDINGS: # of images incl. paperwork: 288 Acute infarct right inferior cerebellar hemisphere, right PICA territory. No other acute infarct. Cytotoxic edema causes mild effacement of sulcal and gyri and of the outflow tract of the fourth ventricle, but with no hydrocephalus. No hemorrhage. Loss of flow void within the intracranial portion of the right vertebral artery. Otherwise flow voids are preserved. The remainder of the brain is unremarkable, with no significant microangiopathic changes, and normal volume for age. No acute osseous normality, no paranasal sinus air-fluid levels. MRI/Brain without Contrast IMPRESSION: Acute nonhemorrhagic right PICA territory infarct involving the inferior aspect of the right cerebellar hemisphere. Loss of flow void in the V4 segment of the right vertebral artery compatible with occlusion or slow flow within this vessel. 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 at 2045 Reported and signed by: Colton Lambert MD Electronically Signed: Colton Lambert, at 20:44 EST Tel , Service support ,
--- NOTE | 2018-07-24 18:16 | MRI_ITS ---
HISTORY: CVA, sudden onset 24 hrs ago of dizziness, N/V TECHNIQUE: Routine [place]/brain 3D time of flight MR angiogram protocol was performed without gadolinium. 3D reconstructions were reviewed. IV Contrast dosage and agent: None. COMPARISON: MRI and CT brain same date. FINDINGS: # of images incl. paperwork: 195 Mild motion artifact. ICAs: No significant stenosis at the intracranial/visualized segments. ACAs: No significant stenosis at the visualized segments. ACOM is present. MCAs: No significant stenosis at the visualized segments. PCOMs are present. social worker psychiatric: No significant stenosis at the visualized segments. BASILAR ARTERY: No significant stenosis. VERTEBRAL ARTERIES: The V4 segment of the right vertebral artery shows no apparent flow. The left is patent. No evidence of intracranial aneurysm or vascular malformation. MRI/MRA Head ONLY without Contrast IMPRESSION: The right vertebral artery V4 segment is either occluded or has very slow flow. Given the lack of atherosclerosis I suspect dissection is the etiology. Neither PICA is well visualized due to motion artifact and other technical factors; the patient has a right PICA stroke on MRI. at 2044 Reported and signed by: Colton Lambert MD Electronically Signed: Colton Lambert, at 20:48 EST Tel , Service support ,
--- NOTE | 2018-07-24 18:16 | MRI_ITS ---
HISTORY: CVA, sudden onset 24 hrs ago of dizziness, N/V TECHNIQUE: Routine carotid MR angiogram protocol was performed. 3D reconstructions were reviewed. Nascet criteria using the distal ICAs for comparison were used for evaluation of stenoses. IV Contrast dosage and agent: 10 cc Gadavist administered intravenously. COMPARISON: No prior neck imaging. FINDINGS: # of images incl. paperwork: 316 AORTIC ARCH AND BRANCHES: No significant stenosis at the visualized portions. Left-sided three-vessel aortic arch. RIGHT CCA: No occlusion, significant stenosis or dissection. RIGHT ICA: No occlusion, significant stenosis or dissection. LEFT CCA: No occlusion, significant stenosis or dissection. LEFT ICA: Mild (20%) narrowing of the proximal left ICA. Otherwise no appreciable left ICA narrowing in the neck. RIGHT VERTEBRAL ARTERY: No enhancement within the right vertebral artery V1 segment. Weak enhancement in the V2 segment at the levels of C3 and C2. Much of the V3 and V4 segments are not included on the study. Weak enhancement of the partially visible distal V4 segment. On the [id number] images, no flow related enhancement is seen within the entirety of the right vertebral artery. LEFT VERTEBRAL ARTERY: No occlusion, significant stenosis or dissection. Left vertebral artery dominant. MRI/MRA Neck WITH and W/O Contrast IMPRESSION: Much of the right vertebral artery is occluded, with weak reconstitution of flow distally. Given the lack of atherosclerosis, dissection is the most likely etiology. Atherosclerotic etiology possible but less likely. No other flow limiting stenosis in the neck. at 2101 Reported and signed by: Colton Lambert MD Electronically Signed: Colton Lambert, at 21:00 EST Tel , Service support ,
[2018-07-24] MEDS: proMETHazine 25 MG/ML Syringe 6.25 MG IV (19:11)
[2018-07-24] MEDS: 0.9% NaCl Peripheral Flush Adult/Peds IV ×2 (21:08→21:10)
[2018-07-24] MEDS: Aspirin 81 MG TAB.CHEW PO (21:27)
--- NOTE | 2018-07-24 21:43 | DCINST_ITS ---
- Discharge Diagnoses Current Active Problems: Current Active and Chronic Problems (Last Reviewed 05/26/18 @ 16:28 by Ishaan Rangel MD) Vertigo (Acute) GERD (gastroesophageal reflux disease) (Acute) Allergies/Adverse Reactions: Allergies No Known Allergies Allergy (Verified 07/24/18 07:32) Medications to take at Discharge Omeprazole [Prilosec] 20 mg PO DAILY 12/20/17 metformin 500 mg tablet 500 mg PO BID tab 01/12/18 aspirin 81 mg chewable tablet 81 mg PO DAILY@0800 #90 tab 03/09/18 omega-3 acid ethyl esters 1 gram capsule 2 cap PO BID 05/26/18 Atorvastatin Calcium [Lipitor] 80 mg PO QHS 07/24/18 Lisinopril [Zestril] 2.5 mg PO DAILY 07/24/18 Metoprolol Tartrate [Lopressor (beta cleve)] 50 mg PO BID 07/24/18 Multivitamin [Multivitamins] 1 each PO DAILY 07/24/18 Testosterone Booster Gnc Suppl 1 dose PO BID 07/24/18 Primary Care Physician: Syd Godoy MD [Primary Care Provider] - Test Results: Test results from this visit will be discussed in further detail at your follow- up appointment, if applicable.
--- NOTE | 2018-07-24 21:43 | PCM.DC.SUM ---
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) Ischemic cardiomyopathy (Chronic) H/O coronary artery bypass surgery (Chronic 12/22/17) CABG x 4 RUT-LAD, SVG-OM2, SVG-LCx, SVG-Right PDA 12/22/2017 @ [facility] Tristian Khanna Nicotine dependence (Chronic) Obesity (Chronic) Hospital Course and Treatment Imaging Results: 07/24/18 18:16 Brain without Contrast [MRI] Stat MRA Head ONLY without Contrast [MRI] Stat MRA Neck WITH and W/O Contrast [MRI] Stat None Operations: None Procedures: None Summary of Care Provided: The patient is a 48 year old M with multiple cardiovascular risk factors including CAD status post CABG and stent who comes in with intractable nausea and vomiting ongoing from 8 PM prior to admission. Patient was seen in the emergency room in the morning, managed with IV fluids, CT scan of the head was reportedly negative for any acute stroke. Patient continued to be worse. He initially refused admission. With his symptoms not getting better, he agreed to be admitted. Hospitalist service was consulted. MRI of the brain was requested. Findings from MRI review large cerebellar infarct with cytotoxic edema and mass-effect. Discussed with neurologist fire investigation lieutenant, recommended patient to be transferred to tertiary facility for urgent neurosurgery and neurologist evaluation. He was accepted at the [facility], neuro ICU. Discussed with the neuro research technician. Patient will be followed by helicopter all by ground. Neuro ICU team recommended to restart hypertonic saline 3% at 75 mls/hr Subjective: See H&P on the day of admission Objective: See H&P on the day of admission - Physical Exam Vital Signs Temp Pulse Resp BP Pulse Ox 98.6 F 80 20 H 154/84 H 99 07/24/18 21:00 07/24/18 21:00 07/24/18 21:00 07/24/18 21:00 07/24/18 21:00 Oxygen Delivery Method Room Air Weight: 118.841 kg Body Mass Index (BMI) 38.7 Intake and Output for Last 24 Hours 07/22/18 07/23/18 07/24/18 23:59 23:59 23:59 Intake Total 215 / 215 Balance 215 / 215 Laboratory Tests Past 24 Hrs 07/24/18 07/24/18 07/24/18 07:45 07:45 17:34 WBC 13.0 H RBC 5.69 Hgb 17.2 H Hct 48.1 MCV 84.5 MCH 30.2 MCHC 35.8 RDW 13.3 RDW Differential 40.9 Plt Count 261 MPV 10.4 Immature Gran % (Auto) 0.200 Neut % (Auto) 85.0 H Lymph % (Auto) 10.9 L [place] % (Auto) 3.8 Eos % (Auto) 0.0 Baso % (Auto) 0.1 Absolute Neuts (auto) 11.1 H Absolute Lymphs (auto) 1.42 Total Counted Not Reportable Sodium 137 Potassium 3.9 Chloride 102 Carbon Dioxide 21.0 Anion Gap 14 BUN 18 Creatinine 1.70 H Estim Creat Clear Calc 52.56 Est GFR (MDRD) Af Amer 55 L Est GFR (MDRD) Non-Af 46 L BUN/Creatinine Ratio 10.6 Glucose 188 H Calcium 9.3 Troponin I < 0.015 07/24/18 20:35 WBC RBC Hgb Hct MCV MCH MCHC RDW RDW Differential Plt Count MPV Immature Gran % (Auto) Neut % (Auto) Lymph % (Auto) [place] % (Auto) Eos % (Auto) Baso % (Auto) Absolute Neuts (auto) Absolute Lymphs (auto) Total Counted Sodium Potassium Chloride Carbon Dioxide Anion Gap BUN Creatinine Estim Creat Clear Calc Est GFR (MDRD) Af Amer Est GFR (MDRD) Non-Af BUN/Creatinine Ratio Glucose Calcium Troponin I < 0.015 POC Glucose 07/24/18 16:32 POC Glucose 124 H Discharge Diet: Low fat/ Low Cholesterol, 2000 mg Sodium Diet Discharge Activity: Return to Normal Activity Home Medications: Medications to take at Discharge Omeprazole [Prilosec] 20 mg PO DAILY 12/20/17 metformin 500 mg tablet 500 mg PO BID tab 01/12/18 aspirin 81 mg chewable tablet 81 mg PO DAILY@0800 #90 tab 03/09/18 omega-3 acid ethyl esters 1 gram capsule 2 cap PO BID 05/26/18 Atorvastatin Calcium [Lipitor] 80 mg PO QHS 07/24/18 Lisinopril [Zestril] 2.5 mg PO DAILY 07/24/18 Metoprolol Tartrate [Lopressor (beta cleve)] 50 mg PO BID 07/24/18 Multivitamin [Multivitamins] 1 each PO DAILY 07/24/18 Testosterone Booster Gnc Suppl 1 dose PO BID 07/24/18 Primary Care Physician: Syd Godoy MD [Primary Care Provider] - Please follow up with your Primary Care Physician in: Within 1-2 weeks Disposition: Home Minutes spent on discharge:: 40 Patient Condition:: Stable Medical Necessity - Tobacco Use Smoking Status: Former smoker Tobacco Use: Non-smoker Meaningful Use Info Meaningful Use Diagnoses (Choose all that apply): None applicable Code Visit Inpatient E&M: 19996 Disch Hosp
--- NOTE | 2018-07-24 21:44 | NURSING ---
Spoke with Abdias at [facility], he states Lucero is normally accepted at [facility]. Faxed face sheet to [facility] main campus.
[2018-07-24] MEDS: Atorvastatin Calcium 80 MG Tablet PO (22:05)
[2018-07-24] MEDS: Heparin Injection (Vial) 5,000 UNIT/ML VIAL 5000 UNIT SC (22:05)
[2018-07-24 22:22] LABS: Bedside Glucose 145 mg/dL (70-110)
--- NOTE | 2018-07-24 22:50 | NURSING ---
Dr. Soliz called wants patient transferred to ICU until he is transferred to ICU. Notified Hallie Technical Service Rep and patients primary nurse. Patient to go to room 202.
[2018-07-24] MEDS: Sodium Chloride 3% 500 ML 70 ML IV (23:27)
[2018-07-25] VITALS: BP 176/106; PULSE 85; RESP 18; TEMP 37.3; O2SAT 96
[2018-07-25 01:00] VITALS: BP 161/74; PULSE 83; RESP 17; O2SAT 94
--- NOTE | 2018-07-25 01:31 | NURSING ---
[facility] transport team here to get pt; report given to transport team
== END 2018-07-25 01:37 | disposition short-term general hospital (02) | DRG 64 ==
LOC: ED 08:00 → PCU 15:41 → ICU 23:17
PROVIDERS: Admitting Provider Internal Medicine; Emergency Provider Emergency Medicine; Family Provider Family Medicine; PCP Family Medicine; Visit Provider Internal Medicine
DX: I63.9 Cerebral infarction, unspecified (principal); G93.6 Cerebral edema; N17.9 Acute kidney failure, unspecified; I25.10 Atherosclerotic heart disease of native coronary artery without angina pectoris; E11.9 Type 2 diabetes mellitus without complications; K21.9 Gastro-esophageal reflux disease without esophagitis; I25.5 Ischemic cardiomyopathy; E66.9 Obesity, unspecified; I10 Essential (primary) hypertension; Z95.1 Presence of aortocoronary bypass graft; Z87.891 Personal history of nicotine dependence; Z79.84 Long term (current) use of oral hypoglycemic drugs; I25.2 Old myocardial infarction; Z68.38 Body mass index [BMI] 38.0-38.9, adult; Z79.899 Other long term (current) drug therapy
CPT/HCPCS: 36415; 70450; 70544; 70549; 70551; 80048; 82962; 84484; 85025; 93005; 99284; A9585; J7030; J7040; A4216; J2405

== ENCOUNTER 2018-09-03 11:00 | Outpatient (RCR) | payer OTHER, SELFPAY ==
[2018-07-24 23:49] VITALS: BMI 38.7
--- NOTE | 2018-08-05 14:12 | HP.OTEVAL ---
Patient's Visit Information SOCORRO ORTIZ is a 48 year old M, referred to Occupational Therapy by GIANFRANCO HEBERT, with a diagnosis of CVA. Date of Evaluation: 08/04/18 Occupational Therapist: Cher Celestin, FERMIN/Zaida, CHT - Subjective Subjective: This 48 year old male was seen following a CVA on 2018. pt states he was having double vision, but that has improved. pt states he still feels dizzy and balance is off. pt states he does notice tingling in both feet when he is getting off toilet. pt works from home as [employer] company. pt states he mostly was having difficulty with focus, and vomiting thought he was sick and went to bed. took him to ER next morning about 12 hours later. pt was shipped out of [facility], to and was treated with medication. pt did see therapist while at hospital and was given several different vision ex. and pt demo ind with his HEP. pt states he is not feeling well today, abdominal pain and vomiting. state he has not been able to keep anything down but still wanted to get started with his therapy. - ROM Shoulder: Right/left WNL Elbow: Right/left WNL Forearm: Right/left WNL Wrist: Right/left WNL - Strength Shoulder: Right/left 4+/5 Elbow: Right/left 4+/5 Forearm: Right/left 4+/5 Wrist: Right/left 4+/5 Surgical Services Manager: right 125# left 130# Lateral Pinch: right 24# left 22# Tripod Pinch: right 18# left 22# Strength Comments: pt demo functional UB and contract loader strength - Visual/Perceptual Skills Visual Field Cut: No Left Neglect: No Copies Shapes Correctly: No Comments: pt demo with vision disruption following his stroke. Pt limited with reading and balance due to visual deficits. - Cognitive Skills Follows Directions: Yes Short Term Memory Impaired: No - Attention Attention: Normal - In-Hand Manipulation Finger to Palm Translation: Normal - Right, Normal - Left Palm to Finger Translation: Normal - Right, Normal - Left - Quick DASH-Disab of Arm,Shoulder& Hand Quick DASH Score: 6.6650 - Goals Goal:: pt will demo the ability to track and maintain tracking for copy letters, typing at ind. level. Pt will demo understanding of compensatory leslie. to use until vision returns for pt to be safe in his surroundings by monserrat/c. pt will demo the ability to type 5 sentences from model to increase pts ind with tacking from model to computer screen with no more than 3 errors by d/c. pt will demo the ability to keep eyes open for 20 min to increase visual awareness to his surroundings - Rehabilitation General Assessment: Pt demo functional UB strength- pts deficits are related to his vision limiting his ability to keep eyes open for entire eval. pt did c/o abdominal pain and vomit during eval. states he has not been able to keep anything down today. Pt demo need for skilled OT services 2x week for 8 to increase his ind. with visual tracking, focus and attention to surroundings. pt would benefit from ed on compensatory leslie. until pts vision improves. pt and family demo understanding, further testing will be done, due to pts vomiting session ended early. Therapist did advise pts to contact neurologist to notify them of pts symptoms, as this was one of the main symptoms of his stroke. Rehabilitation Potential: Good - Anticipated Interventions Anticipated Interventions: Neuro Reeducation, Visual/Perceptual Skills, Cognitive Skills - Visit Plan Frequency: 1-2x /Week Duration: 6 Weeks TEXT: Thank you for the opportunity to evaluate your patient. For Medicare and Medicare HMO plans, please review the plan of care and approve it. It will need to be FAXED BACK to us at [phone] for Medicare purposes. Please let me know if there are questions or concerns regarding this plan of care. Physician Signature: Date:
--- NOTE | 2018-08-06 14:27 | HP.PTEVAL ---
Patient's Visit Information SOCORRO ORTIZ is a 48 year old M referred to Physical Therapy by GIANFRANCO HEBERT with a diagnosis of Ataxia s/p CVA. Date of Evaluation: 08/06/18 Physical Therapist: Carmen Torres DPT - Visit Plan Frequency: 2x /Week Duration: 4 Weeks Plan: Focus on balance - Subjective Findings: Stood up and knew something was wrong- waiting until the next day to go to ER 2 weeks ago- Did a CT scan and MRI- saw CVA- sent to [place]- ICU and neurology monitoring pressure in his head. Was able to diminish pressure through fluid- went to a step down and then home. Has been home about a week. Double vision which made him sick- bad roller coaster ride. Couldn't open eyes due to the nausea. Double vision is gone except for about 30-45 min after he wakes up. Nausea is gone and he is now keeping things down for about 48 hours. Everything is off to the right- about a foot- its getting better but taking time. 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 Lives in a 2 story home- bedroom is upstairs- tries to use a walker in his home and its just not condusive- he is doing more furniture surfing. Can walk I just veers. works outside of her home- leaves him home alone. Does have a ANTONY that comes and goes. /10 in the base of the skull. PMHx: quad bypass in December- took him off plavix in May- but has been put back on plavix and asprin. See Med list in OT. Does have mild tinging in the right leg when he sits for to long. Right hand dominate. Sleep: does sleep a lot because its relief from re-setting. - Objective Posture: FH, RS, Increased kyphosis. Gait: ataxic- veers to the right with slow francisco j and looks to hold onto . Stairs: asc/desc 8 recip with 2 HR. Balance: SLS: left 8 seconds Right: 9 seconds then LOB and requires UE A x 2 to right himself. Unable to place one foot in front of the other without UE A and unable to hold bilaterally. Able to ambulate backwards for 5 steps but then reported feeling unsafe. Amb with head turns both horizontal and vertical increased sway and unsteadiness. ROM: WFL. Strength: 5/5 throughout LE. Core: fair. Sensation/Reflex: WNL. Vestibular: cleared by EBG - Goals Goal 1:: Patient will be I with HEP and progression Goal Time Frame: 4-6 Weeks Goal 2:: Patient will ambulate >300 feet with a normalized gait pattern Goal Time Frame: 4-6 Weeks Goal 3:: Patient will perform SLS for 30 sec bilaterally Goal Time Frame: 4-6 Weeks Goal 4:: Patient will tandem stance for 15 seconds bilaterally Goal Time Frame: 4-6 Weeks Goal 5:: Patient will report 0 dizziness for 1 week Goal Time Frame: 4-6 Weeks - Rehabilitation Potential Physical Therapy Diagnosis: Patient presents with hypomobility- he has decreased balance leading to poor ambulation and abnormal ADL's. Rehabilitation Potential: Fair - Anticipated Interventions Patient/Client Instruction: Educate patient on: Benefits of Fitness Program Therapeutic Exercise to Include: Strength training, Endurance training, Balance training, Agility training, Body mechanics, Postural training, Flexibilty training, Gait and locomotor training, Neuromotor development, Dynamic Lumbar Stabilization For the Purpose of:: To improve muscle performance and motor function Thank you for the opportunity to evaluate your patient. For Medicare and Medicare HMO plans, please review the plan of care and approve it. It will need to be FAXED BACK to us at [phone] for Medicare purposes. For Medicare only, by signing this I certify the plan of care. Please let me know if there are questions or concerns regarding this plan of care. Physician Signature: Date:
--- NOTE | 2018-09-03 11:18 | HP.PTDCSUM ---
HP - PT D/C Summary It has been my pleasure to treat SOCORRO ORTIZ under orders from GIANFRANCO HEBERT, for the diagnosis of Ataxia s/p CVA for a total of 9 visit(s). Discharge Date: Please see the following information for a summary of their discharge status. - Subjective Subjective: Patient reports most of the time he just feels fuzzy. When he is stationary things look pretty normal. Dynamic things are still off a little bit. Plans to meet with a neurological opthamologitst but it will be a few months. His mobility is good- he is not running into door frames. As long as he has something to focus on hes okay- but as soon as he closes them he sways a little bit. Is planning to stay active at home. - Overall Improvement % Improvement: 90 - Objective Objective/Function: Posture: FH, RS, Increased kyphosis- can correct with VC's. Gait: no devaition noted Stairs: asc/desc 8 recip with no HR. Balance: SLS: left 15 seconds Right: 15 seconds. Tandem walking x4 steps in // bars- no UE A. Able to ambulate backwards for 25 feet no LOB. Amb with head turns both horizontal and vertical mild increased sway and but steady. ROM: WFL. Strength: 5/5 throughout LE. Core: fair. Sensation/Reflex: WNL. - Goals Goal 1:: Patient will be I with HEP and progression Goal Progress: Goal Met Goal 2:: Patient will ambulate >300 feet with a normalized gait pattern Goal 3:: Patient will perform SLS for 30 sec bilaterally Goal Progress: Progressing Goal 4:: Patient will tandem stance for 15 seconds bilaterally Goal 5:: Patient will report 0 dizziness for 1 week Goal Progress: Progressing - Plan Plan: Discharge to I HEP - D/C Information If there are questions or concerns regarding this patient's physical therapy, please feel free to call me at [phone]. Thank you for the referral of this patient. Sincerely, Carmen Torres DPT
== END 2018-09-03 19:00 | disposition home or self-care (01) ==
LOC: PT 11:00
PROVIDERS: Family Provider Family Medicine; PCP Family Medicine
DX: I69.393 Ataxia following cerebral infarction (principal)
CPT/HCPCS: 97110; 97116; 97162; 97164; 97166; 97530

== ENCOUNTER → 2020-09-08 19:57 | Outpatient (CLI) | payer OTHER, SELFPAY | PROVIDERS: PCP Family Medicine; Visit Provider Psychiatry & Neurology Sleep Medicine | DX: G47.33 Obstructive sleep apnea (adult) (pediatric) (principal) | CPT/HCPCS: 95811 ==

== ENCOUNTER → 2023-12-29 | Outpatient (CLI) | payer OTHER, SELFPAY ==
--- NOTE | 2023-12-29 06:13 | ECHOCS_ITS ---
Reason For Study: CABG Procedure This was a 2D Doppler, Color Flow transthoracic echocardiogram. The study was technically difficult. Contrast injection was performed. Exam performed in department. Left Ventricle Normal LV size. Left ventricular systolic function is normal. The left ventricular ejection fraction is 65 %. Stage 1 diastolic dysfunction. No regional wall motion abnormalities noted. Right Ventricle Normal RV size. Normal systolic function. Atria Normal left atrium. Normal right atrium. Mitral Valve Normal mitral valve. Tricuspid Valve Normal tricuspid valve. Mild tricuspid valve insufficiency. Pulmonary artery systolic pressure is 26 mmHg. Aortic Valve Trisinus/trileaflet aortic valve. Pulmonic Valve Normal pulmonic valve. Great Vessels Normal aortic root. The pulmonary artery is normal size. Normal inferior vena cava. Pericardium/Pleural No pericardial effusion. Medication 22 gauge I.V. with prn adaptor inserted into right arm. Diluted definity 2ml given slow IV push to enhance endocardial definition. MMode/2D Measurements & Calculations LVIDd: 5.7 cm IVSd: 1.1 cm Ao root diam: 3.5 cm LVIDs: 4.1 cm LVPWd: 0.99 cm LA dimension: 4.4 cm RVDd: 3.8 cm FS: 29.2 % LAV(MOD-bp): 46.8 ml LVAd ap4: 35.5 cm2 SV(MOD-sp4): 76.4 ml LAV(MOD-bp) Indexed: 21.0 ml/m2 LVLd ap4: 8.6 cm LAV(MOD-sp2): 50.4 ml EDV(MOD-sp4): 119.5 ml LAV(MOD-sp4): 44.3 ml EDV(sp4-el): 123.6 ml LVAs ap4: 19.2 cm2 LVLs ap4: 7.4 cm ESV(MOD-sp4): 43.1 ml ESV(sp4-el): 42.2 ml EF(MOD-sp4): 63.9 % EF(sp4-el): 65.9 % SV(sp4-el): 81.4 ml LA A4 area: 17.3 cm2 RA A4 area: 16.9 cm2 TAPSE: 1.7 cm Time Measurements MV dec time: 0.21 sec Doppler Measurements & Calculations MV E max morgan: 56.8 cm/sec Lat Peak E' Morgan: 14.7 cm/sec Med Peak E' Morgan: 8.5 cm/sec MV A max morgan: 61.3 cm/sec E/E' lat: 3.9 E/E' med: 6.6 MV E/A: 0.93 MV V2 max: 74.6 cm/sec MV P1/2t max morgan: 72.7 cm/sec Ao V2 max: 100.1 cm/sec MV max P.2 mmHg MV P1/2t: 68.4 msec Ao max P.0 mmHg MV V2 mean: 43.2 cm/sec Ao V2 mean: 72.6 cm/sec MV mean P.87 mmHg MV dec slope: 311.3 cm/sec2 Ao mean P.4 mmHg MV V2 VTI: 21.2 cm MVA(P1/2t): 3.2 cm2 Ao V2 VTI: 22.1 cm AV (velocity ratio): 0.71 LV V1 max: 76.4 cm/sec PA V2 max: 94.7 cm/sec TR max morgan: 238.9 cm/sec LV V1 max P.3 mmHg PA max PG (full): 2.1 mmHg TR max P.8 mmHg LV V1 mean P.4 mmHg PA V2 mean: 61.8 cm/sec LV V1 mean: 56.5 cm/sec PA mean PG (full): 1.1 mmHg LV V1 VTI: 15.6 cm ECHO/Echo Complete W/ Contrast Interpretation Summary Normal LV size. Left ventricular systolic function is normal. The left ventricular ejection fraction is 65 %. Stage 1 diastolic dysfunction. Contrast injection was performed. Ordering Physician: Ishaan Rangel Referring Physician: Ishaan Rangel Performed By: Papo Conn RCS
--- NOTE | 2023-12-30 12:04 | STRESSREP_ITS ---
Stress Test Report Exercise myocardial perfusion stress test. 53-year-old man with a history of coronary artery disease with shortness of breath Stress protocol: Resting EKG demonstrates normal sinus rhythm with a rate of 71 bpm resting blood pressure is 138/88 mmHg. The patient exercised according to the regular [place] protocol for a total duration of 6 minutes attaining a maximum heart rate of 150 bpm which was 90% of maximum predicted heart rate; the maximum workload was 7 metabolic equivalents. At rest there were no ST or T wave changes noted to sugg est ischemia and at peak exercise upsloping ST changes only were noted which did not meet the criteria for ischemia. No clinical angina was noted the test was terminated due to the target heart rate being achieved/fatigue. The peak blood pressure was 198/98 mmHg. Rate-pressure product was 25,500. Myocardial perfusion protocol. 14 point mCi of technetium 99m sestamibi was injected at rest. The patient exercised according to regular Glen protocol for total duration of 6 minutes and at peak exercise 44 point mCi of technetium 99m sestamibi was injected stress images were obtained stress and rest images were reconstructed in comparing the short axis vertical long and horizontal long axis. Gated images were also obtained. Perfusion SPECT analysis: Review of the stress images demonstrate normal uptake of tracer noted in all areas of the myocardium. The resting images similarly demonstrate normal uptake of tracer noted in all areas of the myocardium. No areas of reversibility are noted to suggest ischemia no previous infarct was noted. Gated SPECT analysis: The gated ejection fraction is 60%. Conclusion: Normal exercise myocardial perfusion stress test at a moderate workload Preserved ejection fraction.
== END | disposition home or self-care (01) ==
PROVIDERS: PCP Family Medicine; Referring Provider Internal Medicine Cardiovascular Disease; Visit Provider Internal Medicine Cardiovascular Disease
DX: I25.10 Atherosclerotic heart disease of native coronary artery without angina pectoris (principal); Z95.1 Presence of aortocoronary bypass graft
CPT/HCPCS: 78452; 93017; 93306; A9500; Q9957; A4216; C8929